=== PATIENT | female | born 1970 | race Caucasian/White ===

== ENCOUNTER 2021-11-30 05:20 | Inpatient (IN) | payer BC ==
[2021-11-30] MEDS ORDERED: Cefepime 2 GM VIAL ONE (05:54)
[2021-11-30 06:14] LABS: #Eosinphils 0.1 10x3/uL (0.0-0.5); #Monocytes 0.8 10x3/uL (0.0-1.1); #Neutrophils 7.3 10x3/uL (1.5-8.4); %Basophils 0.3 % (0.0-2.0); %Eosinophils 0.7 % (0.0-6.0); %Lymphocytes 18.3 % (18.0-47.0); %Monocytes 8.1 % (0.0-10.0); %Neutrophils 71.8 % (40.0-75.0); Hemoglobin 11.2 g/dL (12.0-15.5); Mean Corpuscular HGB CONC 28.9 g/dL (32.0-36.0); Mean Corpuscular Hemoglobin 20.4 pg (27.0-33.0); Mean Corpuscular Volume 70.4 fl (81.6-98.3); Mean Platelet Volume 9.4 fl (7.4-10.4); Platelet Count 525 10x3/uL (150-450); White Blood Cell (WBC) Count 10.2 10x3/uL (3.5-10.5)
[2021-11-30 06:22] LABS: ALT (SGPT) 18 U/L (8-55); AST (SGOT) 25 U/L (5-34); Albumin 3.8 g/dL (3.5-5.0); Alkaline Phosphatase 64 U/L (40-110); Anion Gap 20 mmol/L (10-20); BUN (Urea Nitrogen) 6 mg/dL (7.0-18.7); Bilirubin, Total 0.4 mg/dL (0.2-1.2); Calc. Creatinine Clearance 0 mL/min (70-130); Carbon Dioxide 26 mmol/L (22-29); Chloride 99 mmol/L (98-107); Estimated GFR 120; Globulin 4.7 g/dL (2.4-3.5); Glucose 112 mg/dL (70-105); Protein, Total 8.5 g/dL (6.0-8.3); Sodium 142 mmol/L (136-145)
[2021-11-30 06:25] LABS: Potassium 2.8 mmol/L (3.5-5.1)
[2021-11-30 06:28] LABS: Bilirubin Neg (Negative); Blood, Urine 150 (Negative); Clarity Cloudy (Clear); Glucose, Urine (Dipstick) Normal (Negative); Ketone, Urine 150 mg/dL (Negative); Leukocyte 500 (Negative); Nitrite Positive (Negative); Protein, Urine (Dipstick) 30 mg/dl (Neg-Trace); Specific Gravity, Urine 1.005 (1.002-1.036); Urobilinogen Normal mg/dL (Less than 2)
[2021-11-30 06:50] LABS: Bacteria/HPF 4+ HPF (None Seen); Calcium Oxalate Crystals 1+ HPF (None Seen); Squamous Epithelial 0-3 HPF (0-3); WBC/HPF Greater Than 50 HPF (0-3)
[2021-11-30 07:06] LABS: SARS-CoV-2 NAA Rapid Test DETECTED (NotDetected)
[2021-11-30] MEDS ORDERED: Acetaminophen 650 MG Suppository PR PRN (08:53)
[2021-11-30] MEDS ORDERED: Ondansetron ODT 4 MG TAB PO PRN (08:53)
[2021-11-30] MEDS ORDERED: Acetaminophen 325 MG TAB PO PRN (08:53)
[2021-11-30] MEDS ORDERED: hydrALAZINE 20 MG/ML VIAL SLOW IVP PRN (08:55)
[2021-11-30] MEDS ORDERED: Benzonatate 100 MG CAP PO PRN (08:55)
[2021-11-30] MEDS ORDERED: Electrolyte Replacement Protocol 1 EACH FS SCH (09:00)
[2021-11-30] MEDS ORDERED: Albuterol Sulfate 2.5 mg/3 ml Neb NEB PRN (09:02)
[2021-11-30] MEDS ORDERED: Pharmacy to Dose REMDESIVIR IVPB PRN (09:20)
[2021-11-30] MEDS ORDERED: Enoxaparin Sodium 40 MG/0.4 ML SYRINGE SC SCH (09:45)
[2021-11-30] MEDS: Potassium Chloride 20 MEQ in Premix Bag 1 BAG IVPB SCH ×4 (10:11→18:21)
[2021-11-30] MEDS: Pantoprazole 40 MG VIAL IVP SCH (10:12)
[2021-11-30] MEDS: Zinc Sulfate 220 MG CAP PO SCH (10:12)
[2021-11-30] MEDS: Ascorbic Acid 500 mg Chewable Tablet PO SCH (10:12)
[2021-11-30] MEDS ORDERED: Nystatin Powder 15 GM BOT TOP PRN (10:13)
[2021-11-30] MEDS ORDERED: Dexamethasone 4 mg/ml Vial SLOW IVP SCH (11:00)
[2021-11-30 11:16] VITALS: BMI 38.0
[2021-11-30] MEDS: Ventolin HFA Inhaler 60 PUFF INHALER INH SCH ×4 (12:29→22:58)
[2021-11-30] MEDS: Ondansetron PF 4 MG/2 ML Vial IVP PRN ×2 (14:24→22:11)
[2021-11-30 15:42] LABS: Anion Gap 21 mmol/L (10-20); BUN (Urea Nitrogen) 6 mg/dL (7.0-18.7); Calc. Creatinine Clearance 287 mL/min (70-130); Calcium 8.7 mg/dL (7.8-10.44); Carbon Dioxide 24 mmol/L (22-29); Chloride 101 mmol/L (98-107); Estimated GFR 121; Glucose 97 mg/dL (70-105); Potassium 3.1 mmol/L (3.5-5.1); Sodium 143 mmol/L (136-145)
[2021-11-30] MEDS: Vancomycin HCl 1.25 GM, Admixture Fee 1 EACH in Sodium Chloride 0.9% 250 ML 250 ML IVPB SCH (16:13)
[2021-11-30] MEDS: Cefepime 1 GM in Sodium Chloride 0.9% 100 ML IVPB SCH (18:20)
[2021-11-30] MEDS ORDERED: Dexamethasone 20 MG/5 ML VIAL SLOW IVP SCH (21:00)
[2021-11-30] MEDS ORDERED: Vancomycin 1 GM in Premix Bag 1 BAG IVPB SCH (21:00)
[2021-11-30] MEDS: Chlorhexidine Gluconate 15 ML UDCUP SSP SCH (21:27)
[2021-11-30] MEDS: Cholecalciferol 1,000 UNITS (25 MCG) TAB PO SCH (21:27)
[2021-11-30] MEDS: Dexamethasone 20 MG/5 ML VIAL SLOW IVP SCH (21:28)
[2021-12-01] MEDS: Vancomycin HCl 1.25 GM, Admixture Fee 1 EACH in Sodium Chloride 0.9% 250 ML 250 ML IVPB SCH (00:28)
[2021-12-01] MEDS ORDERED: HYDROcodone/Acetaminophen 10/325 mg Tablet PO SCH (00:30)
[2021-12-01] MEDS ORDERED: Cyclobenzaprine 10 MG TAB PO SCH (00:30)
[2021-12-01] MEDS: Ventolin HFA Inhaler 60 PUFF INHALER INH SCH ×5 (03:37→19:41)
[2021-12-01 04:46] LABS: Hemoglobin 9.7 g/dL (12.0-15.5); Mean Corpuscular Hemoglobin 20.5 pg (27.0-33.0); Mean Corpuscular Volume 70.6 fl (81.6-98.3); Mean Platelet Volume 9.2 fl (7.4-10.4); Platelet Count 478 10x3/uL (150-450); RBC Distribution Width 20.5 % (11.5-14.5); Red Blood Cell (RBC) Count 4.73 10x6/uL (3.90-5.03); White Blood Cell (WBC) Count 5.2 10x3/uL (3.5-10.5)
[2021-12-01 04:53] LABS: ALT (SGPT) 14 U/L (8-55); AST (SGOT) 16 U/L (5-34); Albumin 3.5 g/dL (3.5-5.0); Alkaline Phosphatase 60 U/L (40-110); Anion Gap 19 mmol/L (10-20); BUN (Urea Nitrogen) 4 mg/dL (7.0-18.7); Bilirubin, Total 0.4 mg/dL (0.2-1.2); Calc. Creatinine Clearance 287 mL/min (70-130); Calcium 8.5 mg/dL (7.8-10.44); Carbon Dioxide 21 mmol/L (22-29); Chloride 106 mmol/L (98-107); Estimated GFR 121; Globulin 4.3 g/dL (2.4-3.5); Glucose 122 mg/dL (70-105); Potassium 3.4 mmol/L (3.5-5.1); Protein, Total 7.8 g/dL (6.0-8.3); Sodium 143 mmol/L (136-145)
[2021-12-01] MEDS: Cefepime 1 GM in Sodium Chloride 0.9% 100 ML IVPB SCH ×2 (05:11→17:27)
[2021-12-01] MEDS ORDERED: Magnesium 2 GM/50 ML(in water) 2 GM in Premix Bag 1 BAG IVPB SCH (05:30)
[2021-12-01 06:30] LABS: MDiff Complete? YES
[2021-12-01 06:34] LABS: Lymphocytes 20 % (21-51); Monocytes 5 % (0-10); Neutrophil 73 % (42-75); Reactive Lymphocytes 2 % (0-10)
[2021-12-01 06:37] LABS: Anisocytosis SLIGHT = 6-15 cells (100X) (0-5/hpf); Schistocytes SLIGHT = 2-5 cells (100X) (0-1/hpf)
[2021-12-01 06:38] LABS: Hypochromia SLIGHT = 6-15 cells (100X) (0-5/hpf); Platelet Morphology Comment Appears Increased
[2021-12-01] MEDS: PHOS-NAK 1 PKT PACK PO SCH ×2 (06:53→08:36)
[2021-12-01 07:02] LABS: Vancomycin, Trough 20.8 ug/mL
[2021-12-01] MEDS: Pantoprazole 40 MG VIAL IVP SCH (08:35)
[2021-12-01] MEDS: Ascorbic Acid 500 mg Chewable Tablet PO SCH (08:36)
[2021-12-01] MEDS: Enoxaparin Sodium 40 MG/0.4 ML SYRINGE SC SCH (08:36)
[2021-12-01] MEDS: Cyclobenzaprine 10 MG TAB PO SCH ×3 (08:38→21:29)
[2021-12-01] MEDS: Zinc Sulfate 220 MG CAP PO SCH (08:38)
[2021-12-01] MEDS: Dexamethasone 20 MG/5 ML VIAL SLOW IVP SCH ×2 (08:39→21:29)
[2021-12-01] MEDS: Chlorhexidine Gluconate 15 ML UDCUP SSP SCH ×2 (08:43→21:29)
[2021-12-01] MEDS: HYDROcodone/Acetaminophen 10/325 mg Tablet PO PRN (09:04)
[2021-12-01] MEDS: Vancomycin HCl 1 GM in Sodium Chloride 0.9% 250 ML 250 ML IVPB SCH (11:13)
[2021-12-01] MEDS ORDERED: Zolpidem Tartrate 5 MG TAB PO PRN (16:54)
[2021-12-01] MEDS: Nystatin Powder 15 GM BOT TOP SCH (17:28)
[2021-12-01] MEDS: Cholecalciferol 1,000 UNITS (25 MCG) TAB PO SCH (21:29)
[2021-12-02] MEDS: Ventolin HFA Inhaler 60 PUFF INHALER INH SCH ×7 (00:12→21:02)
[2021-12-02] MEDS: Vancomycin HCl 1 GM in Sodium Chloride 0.9% 250 ML 250 ML IVPB SCH (00:12)
[2021-12-02] MEDS: HYDROcodone/Acetaminophen 10/325 mg Tablet PO PRN ×3 (00:44→20:37)
[2021-12-02 05:06] LABS: #Monocytes 0.5 10x3/uL (0.0-1.1); #Neutrophils 4.7 10x3/uL (1.5-8.4); %Basophils 0.3 % (0.0-2.0); %Lymphocytes 22.2 % (18.0-47.0); %Monocytes 6.7 % (0.0-10.0); %Neutrophils 66.6 % (40.0-75.0); Hemoglobin 8.9 g/dL (12.0-15.5); Mean Corpuscular HGB CONC 28.5 g/dL (32.0-36.0); Mean Corpuscular Volume 70.1 fl (81.6-98.3); Mean Platelet Volume 9.9 fl (7.4-10.4); Platelet Count 522 10x3/uL (150-450); RBC Distribution Width 21.2 % (11.5-14.5); Red Blood Cell (RBC) Count 4.45 10x6/uL (3.90-5.03)
[2021-12-02] MEDS: Cefepime 1 GM in Sodium Chloride 0.9% 100 ML IVPB SCH (05:19)
[2021-12-02 05:30] LABS: ALT (SGPT) 12 U/L (8-55); AST (SGOT) 12 U/L (5-34); Albumin 3.3 g/dL (3.5-5.0); Alkaline Phosphatase 54 U/L (40-110); Anion Gap 14 mmol/L (10-20); BUN (Urea Nitrogen) 6 mg/dL (7.0-18.7); Bilirubin, Total 0.3 mg/dL (0.2-1.2); Calc. Creatinine Clearance 287 mL/min (70-130); Calcium 8.2 mg/dL (7.8-10.44); Carbon Dioxide 26 mmol/L (22-29); Chloride 105 mmol/L (98-107); Estimated GFR 121; Globulin 3.9 g/dL (2.4-3.5); Glucose 125 mg/dL (70-105); Potassium 3.2 mmol/L (3.5-5.1); Protein, Total 7.2 g/dL (6.0-8.3); Sodium 142 mmol/L (136-145)
[2021-12-02] MEDS ORDERED: Potassium Chloride 20 MEQ TAB PO SCH (06:00)
[2021-12-02 06:25] LABS: Hypochromia SLIGHT = 6-15 cells (100X) (0-5/hpf)
[2021-12-02 06:26] LABS: Microcytosis SLIGHT = 6-15 cells (100X) (0-5/hpf)
[2021-12-02] MEDS ORDERED: Fluconazole 100 MG TAB PO SCH (09:00)
[2021-12-02] MEDS: Cyclobenzaprine 10 MG TAB PO SCH ×3 (09:53→20:35)
[2021-12-02] MEDS: Dexamethasone 20 MG/5 ML VIAL SLOW IVP SCH ×2 (09:53→20:36)
[2021-12-02] MEDS: Ascorbic Acid 500 mg Chewable Tablet PO SCH (09:53)
[2021-12-02] MEDS: Escitalopram Oxalate 20 mg Tablet PO SCH (09:54)
[2021-12-02] MEDS: Furosemide 20 MG TAB PO SCH (09:54)
[2021-12-02] MEDS: Ferrous Sulfate 325 MG TAB PO SCH (09:54)
[2021-12-02] MEDS: Potassium Chloride 20 MEQ TAB PO SCH (09:55)
[2021-12-02] MEDS: Zinc Sulfate 220 MG CAP PO SCH (09:56)
[2021-12-02] MEDS: Pantoprazole 40 MG VIAL IVP SCH (09:56)
[2021-12-02] MEDS: Chlorhexidine Gluconate 15 ML UDCUP SSP SCH ×2 (09:56→20:37)
[2021-12-02] MEDS: Enoxaparin Sodium 40 MG/0.4 ML SYRINGE SC SCH (09:56)
[2021-12-02] MEDS: Nystatin Powder 15 GM BOT TOP SCH ×3 (10:06→21:00)
[2021-12-02 11:47] LABS: Potassium 3.7 mmol/L (3.5-5.1)
[2021-12-02] MEDS: Cholecalciferol 1,000 UNITS (25 MCG) TAB PO SCH (20:35)
[2021-12-02] MEDS ORDERED: Melatonin 3 MG TAB PO PRN (20:58)
[2021-12-03] MEDS: Ventolin HFA Inhaler 60 PUFF INHALER INH SCH ×5 (01:45→17:11)
[2021-12-03] MEDS ORDERED: Nitrofurantoin Monohyd/M-Cryst 100 MG CAP PO SCH (09:00)
[2021-12-03] MEDS: Chlorhexidine Gluconate 15 ML UDCUP SSP SCH (10:32)
[2021-12-03] MEDS: Potassium Chloride 20 MEQ TAB PO SCH (10:32)
[2021-12-03] MEDS: Cyclobenzaprine 10 MG TAB PO SCH ×2 (10:32→16:11)
[2021-12-03] MEDS: Ascorbic Acid 500 mg Chewable Tablet PO SCH (10:33)
[2021-12-03] MEDS: Zinc Sulfate 220 MG CAP PO SCH (10:33)
[2021-12-03] MEDS: Escitalopram Oxalate 20 mg Tablet PO SCH (10:34)
[2021-12-03] MEDS: Furosemide 20 MG TAB PO SCH (10:34)
[2021-12-03] MEDS: HYDROcodone/Acetaminophen 10/325 mg Tablet PO PRN ×2 (10:34→16:10)
[2021-12-03] MEDS: Ferrous Sulfate 325 MG TAB PO SCH (10:34)
[2021-12-03] MEDS: Pantoprazole 40 MG VIAL IVP SCH (10:35)
[2021-12-03] MEDS: Dexamethasone 20 MG/5 ML VIAL SLOW IVP SCH (10:35)
[2021-12-03] MEDS: Nystatin Powder 15 GM BOT TOP SCH ×2 (10:36→16:11)
[2021-12-03] MEDS: Enoxaparin Sodium 40 MG/0.4 ML SYRINGE SC SCH (10:36)
[2021-12-03 10:58] LABS: Phosphorus 1.9 mg/dL (2.3-4.7)
[2021-12-03] MEDS ORDERED: Cefdinir 300 MG CAP PO SCH ×2 (12:00→21:00)
[2021-12-03] MEDS ORDERED: Potassium Phosphate 30 MMOL in Sodium Chloride 0.9% 500 ML IVPB SCH (12:00)
[2021-12-03 22:11] VITALS: BP 155/91; TEMP 97.9
== END 2021-12-03 22:14 | disposition home or self-care (01) | DRG 871 ==
LOC: CSHERS 05:20 → CSHTELE 09:39
PROVIDERS: ADMIT Internal Medicine; ATTEND Internal Medicine
DX: A41.9 Sepsis, unspecified organism (principal); U07.1 COVID-19; J96.01 Acute respiratory failure with hypoxia; T83.511A Infection and inflammatory reaction due to indwelling urethral catheter, initial encounter; N39.0 Urinary tract infection, site not specified; G71.00 Muscular dystrophy, unspecified; F32.A Depression, unspecified; E66.9 Obesity, unspecified; E87.6 Hypokalemia; E83.39 Other disorders of phosphorus metabolism; Y83.8 Other surgical procedures as the cause of abnormal reaction of the patient, or of later complication, without mention of misadventure at the time of the procedure; B96.20 Unspecified Escherichia coli [E. coli] as the cause of diseases classified elsewhere; B96.5 Pseudomonas (aeruginosa) (mallei) (pseudomallei) as the cause of diseases classified elsewhere; I10 Essential (primary) hypertension; D50.9 Iron deficiency anemia, unspecified; Z88.1 Allergy status to other antibiotic agents; Z88.0 Allergy status to penicillin; Z79.899 Other long term (current) drug therapy; Z98.890 Other specified postprocedural states; Z68.38 Body mass index [BMI] 38.0-38.9, adult
CPT/HCPCS: 36415; 36416; 71045; 80053; 80202; 81003; 81015; 82728; 83605; 83735; 83880; 84100; 84484; 85025; 85379; 86140; 87040; 87077; 87086; 87186; 94760; 96365; 96366; 97139; C9113; J0692; J1100; J1650; J2405; J3370; J3475; J3480; J3490; J7030; J7050; U0002

== ENCOUNTER 2022-08-07 11:47 | Inpatient (IN) | payer BC, OTHER ==
[2022-08-07 12:46] LABS: Hemoglobin 11.5 g/dL (12.0-15.5); Mean Corpuscular HGB CONC 29.4 g/dL (32.0-36.0); Mean Corpuscular Volume 74.8 fl (81.6-98.3); Mean Platelet Volume 8.8 fl (7.4-10.4); Platelet Count 854 10x3/uL (150-450); RBC Distribution Width 22.7 % (11.5-14.5); Red Blood Cell (RBC) Count 5.23 10x6/uL (3.90-5.03)
[2022-08-07 12:48] LABS: MDiff Complete? YES; Manual Diff?? YES
[2022-08-07 12:51] LABS: ALT (SGPT) 6 U/L (8-55); AST (SGOT) 13 U/L (5-34); Albumin 2.7 g/dL (3.5-5.0); Alkaline Phosphatase 113 U/L (40-110); Anion Gap 27 mmol/L (10-20); BUN (Urea Nitrogen) 7 mg/dL (7.0-18.7); Bilirubin, Total 0.2 mg/dL (0.2-1.2); Calc. Creatinine Clearance 0 mL/min (70-130); Calcium 8.3 mg/dL (7.8-10.44); Carbon Dioxide 17 mmol/L (22-29); Chloride 99 mmol/L (98-107); Estimated GFR 115; Globulin 5.3 g/dL (2.4-3.5); Glucose 99 mg/dL (70-105); Magnesium 2.2 mg/dL (1.6-2.6); Potassium 3.5 mmol/L (3.5-5.1); Sodium 139 mmol/L (136-145)
[2022-08-07 12:54] LABS: Band 3 % (5-11); Lymphocytes 14 % (21-51); Monocytes 2 % (0-10); Neutrophil 81 % (42-75)
[2022-08-07 12:55] LABS: Platelet Morphology Comment Appears Increased
[2022-08-07 12:57] LABS: Macrocytosis SLIGHT = 6-15 cells (100X) (0-5/hpf); Microcytosis SLIGHT = 6-15 cells (100X) (0-5/hpf)
[2022-08-07] MEDS ORDERED: VANCOMYCIN 2 GRAM/400 ML BAG 2 GM in Premix Bag 1 BAG IVPB SCH (13:15)
[2022-08-07] MEDS ORDERED: Morphine 4 MG/ML VIAL ONE (13:55)
[2022-08-07 13:58] LABS: Bilirubin Neg (Negative); Blood, Urine 25 (Negative); Clarity Clear (Clear); Glucose, Urine (Dipstick) Normal (Negative); Ketone, Urine 150 mg/dL (Negative); Leukocyte 500 (Negative); Nitrite Negative (Negative); Protein, Urine (Dipstick) 30 mg/dl (Neg-Trace); Urobilinogen Normal mg/dL (Less than 2)
[2022-08-07 14:06] LABS: RBC/HPF 0-3 HPF (0-3); WBC/HPF Greater than 50 HPF (0-3)
[2022-08-07 14:07] LABS: Bacteria/HPF 3+ HPF (None Seen); Renal Epithelial 0-3 HPF (None Seen); Transitional Epithelial 0-3 HPF (None Seen)
[2022-08-07 14:28] LABS: SARS-CoV-2 NAA Rapid Test Not Detected (NotDetected)
[2022-08-07] MEDS ORDERED: Promethazine HCl 25 MG in Sodium Chloride 0.9% 50 ML IVPB SCH (14:30)
[2022-08-07] MEDS ORDERED: Zolpidem Tartrate 5 MG TAB PO PRN (14:43)
[2022-08-07] MEDS ORDERED: Promethazine 25 MG TAB PO PRN (14:43)
[2022-08-07] MEDS ORDERED: diphenhydrAMINE 50 MG CAP PO PRN (14:43)
[2022-08-07] MEDS ORDERED: Acetaminophen 325 MG TAB PO PRN (14:52)
[2022-08-07] MEDS ORDERED: Ondansetron PF 4 MG/2 ML Vial IVP PRN (14:52)
[2022-08-07] MEDS ORDERED: Cefepime 2 GM VIAL ONE (16:13)
[2022-08-07] MEDS ORDERED: Cyclobenzaprine 10 MG TAB ONE (17:29)
[2022-08-07] MEDS ORDERED: HYDROcodone/Acetaminophen 10/325 mg Tablet ONE (17:29)
[2022-08-07] MEDS: Cyclobenzaprine 10 MG TAB PO SCH ×2 (19:11→21:03)
[2022-08-07] MEDS: HYDROcodone/Acetaminophen 10/325 mg Tablet PO SCH ×2 (19:11→21:03)
[2022-08-07] MEDS: Nystatin/Triamcinolone Cream 15 GM TUBE TOP SCH (20:55)
[2022-08-07] MEDS: Lactated Ringer's 1,000 ML IV SCH ×2 (21:02→22:55)
[2022-08-07] MEDS: Nystatin Powder 15 GM BOT TOP SCH (21:07)
[2022-08-07] MEDS ORDERED: Amlodipine 5 MG TAB PO SCH (22:30)
[2022-08-08 03:19] LABS: #Basophils 0.1 10x3/uL (0.0-0.2); #Monocytes 2.1 10x3/uL (0.0-1.1); #Neutrophils 14.9 10x3/uL (1.5-8.4); %Basophils 0.3 % (0.0-2.0); %Lymphocytes 18.8 % (18.0-47.0); %Monocytes 9.7 % (0.0-10.0); %Neutrophils 67.5 % (40.0-75.0); Hemoglobin 10.3 g/dL (12.0-15.5); Mean Corpuscular HGB CONC 29.3 g/dL (32.0-36.0); Mean Corpuscular Hemoglobin 22.2 pg (27.0-33.0); Mean Platelet Volume 8.8 fl (7.4-10.4); Platelet Count 550 10x3/uL (150-450); RBC Distribution Width 22.7 % (11.5-14.5); Red Blood Cell (RBC) Count 4.63 10x6/uL (3.90-5.03)
[2022-08-08 03:35] LABS: Anisocytosis SLIGHT = 6-15 cells (100X) (0-5/hpf); Hypochromia SLIGHT = 6-15 cells (100X) (0-5/hpf); Microcytosis SLIGHT = 6-15 cells (100X) (0-5/hpf); Platelet Morphology Comment Appears Increased; Polychromasia SLIGHT = 2-3 cells (100X) (0-2/hpf)
[2022-08-08 03:36] LABS: ALT (SGPT) 6 U/L (8-55); AST (SGOT) 18 U/L (5-34); Albumin 2.1 g/dL (3.5-5.0); Alkaline Phosphatase 87 U/L (40-110); Anion Gap 20 mmol/L (10-20); BUN (Urea Nitrogen) 4 mg/dL (7.0-18.7); Bilirubin, Total 0.2 mg/dL (0.2-1.2); Calc. Creatinine Clearance 219 mL/min (70-130); Calcium 7.8 mg/dL (7.8-10.44); Carbon Dioxide 17 mmol/L (22-29); Chloride 106 mmol/L (98-107); Estimated GFR 117; Globulin 5.1 g/dL (2.4-3.5); Glucose 85 mg/dL (70-105); Potassium 3.2 mmol/L (3.5-5.1); Protein, Total 7.2 g/dL (6.0-8.3); Sodium 140 mmol/L (136-145)
[2022-08-08] MEDS: Cefepime 2 GM in Sodium Chloride 0.9% 100 ML IVPB SCH ×2 (03:36→15:36)
[2022-08-08] MEDS: Lactated Ringer's 1,000 ML IV SCH ×2 (04:46→15:37)
[2022-08-08] MEDS ORDERED: Potassium Chloride 20 MEQ in Premix Bag 1 BAG IVPB SCH (05:15)
[2022-08-08] MEDS: Cyclobenzaprine 10 MG TAB PO SCH ×3 (08:41→21:35)
[2022-08-08] MEDS: Zinc Sulfate 220 MG CAP PO SCH (08:41)
[2022-08-08] MEDS: HYDROcodone/Acetaminophen 10/325 mg Tablet PO SCH ×3 (08:42→21:35)
[2022-08-08] MEDS: Escitalopram Oxalate 20 mg Tablet PO SCH (08:42)
[2022-08-08] MEDS: Ascorbic Acid 500 mg Chewable Tablet PO SCH (08:43)
[2022-08-08] MEDS: Nystatin/Triamcinolone Cream 15 GM TUBE TOP SCH ×2 (08:43→21:39)
[2022-08-08] MEDS: Aspirin 81 mg Enteric Coated Tablet PO SCH (08:43)
[2022-08-08] MEDS: Nystatin Powder 15 GM BOT TOP SCH ×4 (09:09→21:39)
[2022-08-08] MEDS ORDERED: Potassium Chloride 20 MEQ TAB PO SCH (09:15)
[2022-08-08] MEDS ORDERED: Vancomycin HCl 1.5 GM, Admixture Fee 1 EACH in Sodium Chloride 0.9% 250 ML 300 ML IVPB SCH (09:30)
[2022-08-08] MEDS ORDERED: Vancomycin HCl 1.5 GM in Sodium Chloride 0.9% 250 ML 300 ML IVPB SCH (09:30)
[2022-08-08] MEDS ORDERED: hydrALAZINE 20 MG/ML VIAL SLOW IVP PRN (18:34)
[2022-08-08] MEDS: Vancomycin HCl 1 GM in Sodium Chloride 0.9% 250 ML 250 ML IVPB SCH (21:36)
[2022-08-09 04:02] LABS: #Basophils 0.1 10x3/uL (0.0-0.2); #Eosinphils 0.1 10x3/uL (0.0-0.5); #Monocytes 1.2 10x3/uL (0.0-1.1); #Neutrophils 9.9 10x3/uL (1.5-8.4); %Basophils 0.3 % (0.0-2.0); %Eosinophils 0.4 % (0.0-6.0); %Lymphocytes 23.3 % (18.0-47.0); %Monocytes 7.9 % (0.0-10.0); %Neutrophils 64.7 % (40.0-75.0); Hemoglobin 9.5 g/dL (12.0-15.5); Mean Corpuscular HGB CONC 29.3 g/dL (32.0-36.0); Mean Corpuscular Hemoglobin 22.4 pg (27.0-33.0); Mean Corpuscular Volume 76.2 fl (81.6-98.3); Mean Platelet Volume 8.3 fl (7.4-10.4); Platelet Count 545 10x3/uL (150-450); RBC Distribution Width 22.8 % (11.5-14.5); Red Blood Cell (RBC) Count 4.25 10x6/uL (3.90-5.03); White Blood Cell (WBC) Count 15.3 10x3/uL (3.5-10.5)
[2022-08-09] MEDS: Cefepime 2 GM in Sodium Chloride 0.9% 100 ML IVPB SCH ×2 (04:13→15:00)
[2022-08-09 04:17] LABS: ALT (SGPT) 7 U/L (8-55); AST (SGOT) 14 U/L (5-34); Albumin 2.1 g/dL (3.5-5.0); Alkaline Phosphatase 79 U/L (40-110); Anion Gap 17 mmol/L (10-20); BUN (Urea Nitrogen) Less than 4 mg/dL (7.0-18.7); Bilirubin, Total 0.2 mg/dL (0.2-1.2); Calc. Creatinine Clearance 239 mL/min (70-130); Calcium 7.8 mg/dL (7.8-10.44); Carbon Dioxide 25 mmol/L (22-29); Chloride 102 mmol/L (98-107); Estimated GFR 119; Globulin 4.2 g/dL (2.4-3.5); Glucose 70 mg/dL (70-105); Protein, Total 6.3 g/dL (6.0-8.3); Sodium 141 mmol/L (136-145)
[2022-08-09 04:24] LABS: Potassium 2.6 mmol/L (3.5-5.1)
[2022-08-09 04:39] LABS: Anisocytosis SLIGHT = 6-15 cells (100X) (0-5/hpf)
[2022-08-09 04:40] LABS: Hypochromia MODERATE=16-30 cells (100X) (0-5/hpf); Microcytosis SLIGHT = 6-15 cells (100X) (0-5/hpf); Platelet Morphology Comment Appears Increased; Polychromasia SLIGHT = 2-3 cells (100X) (0-2/hpf)
[2022-08-09] MEDS ORDERED: Potassium Chloride 20 MEQ in Premix Bag 1 BAG IVPB SCH ×2 (04:45→08:00)
[2022-08-09] MEDS: Lactated Ringer's 1,000 ML IV SCH ×2 (05:00→22:15)
[2022-08-09] MEDS: Potassium Chloride 20 MEQ TAB PO SCH ×2 (06:05→09:53)
[2022-08-09 06:20] VITALS: BMI 36.4
[2022-08-09] MEDS: HYDROcodone/Acetaminophen 10/325 mg Tablet PO SCH ×5 (09:51→20:25)
[2022-08-09] MEDS: Escitalopram Oxalate 20 mg Tablet PO SCH (09:53)
[2022-08-09] MEDS: Ascorbic Acid 500 mg Chewable Tablet PO SCH (09:54)
[2022-08-09] MEDS: Aspirin 81 mg Enteric Coated Tablet PO SCH (09:55)
[2022-08-09] MEDS: Zinc Sulfate 220 MG CAP PO SCH (09:55)
[2022-08-09] MEDS: Cyclobenzaprine 10 MG TAB PO SCH ×5 (09:55→20:26)
[2022-08-09] MEDS: Nystatin Powder 15 GM BOT TOP SCH ×3 (09:58→20:28)
[2022-08-09] MEDS: Nystatin/Triamcinolone Cream 15 GM TUBE TOP SCH ×2 (10:12→20:27)
[2022-08-09] MEDS: Vancomycin HCl 1 GM in Sodium Chloride 0.9% 250 ML 250 ML IVPB SCH ×4 (11:35→22:48)
[2022-08-09 13:15] LABS: Potassium 3.1 mmol/L (3.5-5.1)
[2022-08-09] MEDS: Morphine 4 MG/ML VIAL SLOW IVP PRN (14:24)
[2022-08-09] MEDS: Potassium Chloride 20 MEQ in Premix Bag 1 BAG IVPB SCH ×2 (16:13→18:12)
[2022-08-09 22:22] LABS: Vancomycin, Trough 18.1 ug/mL
[2022-08-10] MEDS: Cefepime 2 GM in Sodium Chloride 0.9% 100 ML IVPB SCH ×2 (04:30→16:08)
[2022-08-10] MEDS: Lactated Ringer's 1,000 ML IV SCH (04:42)
[2022-08-10 04:56] LABS: #Basophils 0.1 10x3/uL (0.0-0.2); #Monocytes 2.2 10x3/uL (0.0-1.1); %Basophils 0.6 % (0.0-2.0); %Eosinophils 0.2 % (0.0-6.0); %Lymphocytes 20.5 % (18.0-47.0); %Monocytes 12.4 % (0.0-10.0); %Neutrophils 62.1 % (40.0-75.0); Hemoglobin 9.7 g/dL (12.0-15.5); Mean Corpuscular Hemoglobin 22.4 pg (27.0-33.0); Platelet Count 598 10x3/uL (150-450); RBC Distribution Width 23.2 % (11.5-14.5); Red Blood Cell (RBC) Count 4.34 10x6/uL (3.90-5.03); White Blood Cell (WBC) Count 17.7 10x3/uL (3.5-10.5)
[2022-08-10] MEDS ORDERED: Metoprolol Tartrate 25 MG TAB PO SCH (05:00)
[2022-08-10 05:05] LABS: ALT (SGPT) 8 U/L (8-55); AST (SGOT) 13 U/L (5-34); Albumin 2.2 g/dL (3.5-5.0); Alkaline Phosphatase 88 U/L (40-110); Anion Gap 19 mmol/L (10-20); BUN (Urea Nitrogen) Less than 4 mg/dL (7.0-18.7); Bilirubin, Total 0.2 mg/dL (0.2-1.2); Calc. Creatinine Clearance 266 mL/min (70-130); Calcium 7.9 mg/dL (7.8-10.44); Carbon Dioxide 26 mmol/L (22-29); Chloride 100 mmol/L (98-107); Estimated GFR 120; Globulin 4.3 g/dL (2.4-3.5); Glucose 59 mg/dL (70-105); Potassium 3.4 mmol/L (3.5-5.1); Protein, Total 6.5 g/dL (6.0-8.3); Sodium 142 mmol/L (136-145)
[2022-08-10] MEDS ORDERED: Potassium Bicarbonate/Cit Ac 20 MEQ TAB PO SCH (09:00)
[2022-08-10] MEDS: Ascorbic Acid 500 mg Chewable Tablet PO SCH (09:28)
[2022-08-10] MEDS: Zinc Sulfate 220 MG CAP PO SCH (09:29)
[2022-08-10] MEDS: HYDROcodone/Acetaminophen 10/325 mg Tablet PO SCH ×2 (09:33→16:07)
[2022-08-10] MEDS: Aspirin 81 mg Enteric Coated Tablet PO SCH (09:34)
[2022-08-10] MEDS: Escitalopram Oxalate 20 mg Tablet PO SCH (09:34)
[2022-08-10] MEDS: Cyclobenzaprine 10 MG TAB PO SCH ×2 (09:35→16:07)
[2022-08-10] MEDS: Nystatin Powder 15 GM BOT TOP SCH ×2 (09:36→15:37)
[2022-08-10] MEDS: Nystatin/Triamcinolone Cream 15 GM TUBE TOP SCH (11:39)
[2022-08-10] MEDS: Vancomycin HCl 1 GM in Sodium Chloride 0.9% 250 ML 250 ML IVPB SCH (11:40)
[2022-08-10] MEDS ORDERED: Polyethylene Glycol 3350 17 GM Packet PO PRN (11:54)
[2022-08-10] MEDS ORDERED: Docusate 100 MG CAP PO PRN (11:54)
[2022-08-10] MEDS ORDERED: Polyethylene Glycol 3350 17 GM Packet PO SCH (12:00)
[2022-08-10] MEDS ORDERED: Docusate 100 MG CAP PO SCH (12:00)
[2022-08-10] MEDS: Morphine 4 MG/ML VIAL SLOW IVP PRN (13:17)
[2022-08-10] MEDS ORDERED: Cefepime 2 GM VIAL ONE (16:00)
[2022-08-10] MEDS ORDERED: Sodium Chloride 0.9% 100 ML ONE (16:00)
[2022-08-10 16:43] VITALS: BP 138/84; TEMP 97.4
== END 2022-08-10 19:14 | disposition short-term general hospital (02) | DRG 698 ==
LOC: CSHERS 11:47 → CSHICU 15:00 → CSHTELE 08-08 14:33
PROVIDERS: ADMIT Internal Medicine; ATTEND Internal Medicine
PROC: 0T2BX0Z Change Drainage Device in Bladder, External Approach (ICD-10-PCS; principal; 2022-08-07)
DX: T83.511A Infection and inflammatory reaction due to indwelling urethral catheter, initial encounter (principal); A41.51 Sepsis due to Escherichia coli [E. coli]; N12 Tubulo-interstitial nephritis, not specified as acute or chronic; I10 Essential (primary) hypertension; G71.00 Muscular dystrophy, unspecified; F32.A Depression, unspecified; Z20.822 Contact with and (suspected) exposure to COVID-19; E66.9 Obesity, unspecified; D64.9 Anemia, unspecified; Y83.8 Other surgical procedures as the cause of abnormal reaction of the patient, or of later complication, without mention of misadventure at the time of the procedure; E87.6 Hypokalemia; Z68.36 Body mass index [BMI] 36.0-36.9, adult; Z98.890 Other specified postprocedural states; Z88.1 Allergy status to other antibiotic agents; Z88.0 Allergy status to penicillin; Z79.899 Other long term (current) drug therapy; Z79.82 Long term (current) use of aspirin
CPT/HCPCS: 36415; 71045; 80053; 80202; 81003; 81015; 83605; 83735; 84484; 85025; 87040; 87086; 94760; 96365; 96366; 96367; 96375; 97139; J0692; J1650; J2270; J2405; J2550; J3370; J3480; J3490; J7050; J7120; U0002

== ENCOUNTER 2022-08-18 10:51 | Inpatient (IN) | payer OTHER ==
[2022-08-18] MEDS ORDERED: Ondansetron PF 4 MG/2 ML Vial ONE ×2 (11:26→17:07)
[2022-08-18] MEDS ORDERED: Cefepime 2 GM VIAL ONE (11:27)
[2022-08-18] MEDS ORDERED: Vancomycin 1 GM VIAL ONE (11:27)
[2022-08-18 11:31] LABS: #Monocytes 0.9 10x3/uL (0.0-1.1); #Neutrophils 9.8 10x3/uL (1.5-8.4); %Basophils 0.1 % (0.0-2.0); %Eosinophils 0.3 % (0.0-6.0); %Lymphocytes 18.7 % (18.0-47.0); %Monocytes 6.9 % (0.0-10.0); %Neutrophils 73.2 % (40.0-75.0); Hemoglobin 10.2 g/dL (12.0-15.5); Mean Corpuscular HGB CONC 29.3 g/dL (32.0-36.0); Mean Corpuscular Hemoglobin 23.3 pg (27.0-33.0); Mean Corpuscular Volume 79.5 fl (81.6-98.3); Mean Platelet Volume 9.2 fl (7.4-10.4); Platelet Count 552 10x3/uL (150-450); RBC Distribution Width 26.8 % (11.5-14.5); Red Blood Cell (RBC) Count 4.38 10x6/uL (3.90-5.03); White Blood Cell (WBC) Count 13.5 10x3/uL (3.5-10.5)
[2022-08-18 11:48] LABS: Anisocytosis MODERATE=16-30 cells (100X) (0-5/hpf); Hypochromia SLIGHT = 6-15 cells (100X) (0-5/hpf); Macrocytosis SLIGHT = 6-15 cells (100X) (0-5/hpf); Microcytosis SLIGHT = 6-15 cells (100X) (0-5/hpf)
[2022-08-18 11:49] LABS: Ovalocytes SLIGHT = 2-5 cells (100X) (0-1/hpf)
[2022-08-18 11:51] LABS: ALT (SGPT) 14 U/L (8-55); AST (SGOT) 24 U/L (5-34); Albumin 2.2 g/dL (3.5-5.0); Alkaline Phosphatase 114 U/L (40-110); Anion Gap 17 mmol/L (10-20); BUN (Urea Nitrogen) 17 mg/dL (7.0-18.7); Bilirubin, Total 0.3 mg/dL (0.2-1.2); Calc. Creatinine Clearance 0 mL/min (70-130); Calcium 8.1 mg/dL (7.8-10.44); Carbon Dioxide 27 mmol/L (22-29); Chloride 100 mmol/L (98-107); Estimated GFR 121; Globulin 4.3 g/dL (2.4-3.5); Glucose 100 mg/dL (70-105); Polychromasia SLIGHT = 2-3 cells (100X) (0-2/hpf); Potassium 3.8 mmol/L (3.5-5.1); Protein, Total 6.5 g/dL (6.0-8.3); Sodium 140 mmol/L (136-145)
[2022-08-18 11:52] LABS: Platelet Morphology Comment Appears Increased
[2022-08-18 12:18] LABS: Bilirubin Neg (Negative); Blood, Urine 25 (Negative); Clarity Cloudy (Clear); Glucose, Urine (Dipstick) Normal (Negative); Ketone, Urine 150 mg/dL (Negative); Leukocyte 500 (Negative); Nitrite Negative (Negative); Protein, Urine (Dipstick) 30 mg/dl (Neg-Trace); Specific Gravity, Urine 1.025 (1.005-1.030); Urobilinogen Normal mg/dL (Less than 2)
[2022-08-18 12:42] LABS: RBC/HPF 0-3 HPF (0-3); Squamous Epithelial 0-3 HPF (0-3); WBC/HPF Greater than 50 HPF (0-3)
[2022-08-18 12:43] LABS: Bacteria/HPF Rare-Few HPF (None Seen); Mucous/LPF 2+ LPF (<2+); Yeast-Budding 2+ HPF (None Seen); Yeast-Hyphae 2+ HPF (None Seen)
[2022-08-18 12:44] LABS: Calcium Oxalate Crystals Rare HPF (None Seen)
[2022-08-18] MEDS ORDERED: Promethazine HCl 12.5 MG in Sodium Chloride 0.9% 50 ML IVPB SCH (13:00)
[2022-08-18] MEDS ORDERED: Morphine 4 MG/ML VIAL ONE (13:38)
[2022-08-18 14:42] LABS: SARS-CoV-2 NAA Rapid Test Not Detected (NotDetected)
[2022-08-18] MEDS ORDERED: Acetaminophen 325 MG TAB PO PRN (14:54)
[2022-08-18] MEDS ORDERED: Ondansetron ODT 4 MG TAB PO PRN (14:54)
[2022-08-18] MEDS ORDERED: Promethazine 25 MG TAB PO PRN (15:13)
[2022-08-18] MEDS ORDERED: Zolpidem Tartrate 5 MG TAB PO PRN (15:13)
[2022-08-18] MEDS ORDERED: diphenhydrAMINE 25 MG CAP PO PRN (15:21)
[2022-08-18] MEDS ORDERED: Lidocaine 2% 6 ML SYR TOP PRN (18:30)
[2022-08-18] MEDS ORDERED: Baclofen 10 MG TAB PO PRN (18:44)
[2022-08-18] MEDS ORDERED: Meropenem 1 GM in Sodium Chloride 0.9% 100 ML IVPB SCH (20:00)
[2022-08-18] MEDS ORDERED: Doxycycline 100 MG in Sodium Chloride 0.9% 100 ML IVPB SCH (21:00)
[2022-08-18] MEDS ORDERED: Meropenem 500 MG in Sodium Chloride 0.9% 100 ML IVPB SCH (22:00)
[2022-08-18] MEDS: Ondansetron PF 4 MG/2 ML Vial IVP PRN (22:20)
[2022-08-18] MEDS: Morphine 4 MG/ML VIAL SLOW IVP PRN (22:20)
[2022-08-18] MEDS: HYDROcodone/Acetaminophen 10/325 mg Tablet PO SCH (22:21)
[2022-08-18] MEDS: Metoprolol Tartrate 25 MG TAB PO SCH (22:21)
[2022-08-18] MEDS: Pregabalin 75 MG CAP PO SCH (22:22)
[2022-08-18] MEDS: Sodium Chloride 0.9% 1,000 ML IV SCH (22:33)
[2022-08-18] MEDS: Nystatin Powder 15 GM BOT TOP SCH (22:35)
[2022-08-18] MEDS: Oxymetazoline HCl 0.05% ( 15 ML ) NASAL SCH (22:37)
[2022-08-19] MEDS: Vancomycin HCl 1 GM in Sodium Chloride 0.9% 250 ML 250 ML IVPB SCH ×3 (02:10→21:34)
[2022-08-19 04:11] LABS: #Basophils 0.1 10x3/uL (0.0-0.2); %Basophils 0.3 % (0.0-2.0); %Eosinophils 0.3 % (0.0-6.0); %Lymphocytes 19.8 % (18.0-47.0); %Monocytes 12.9 % (0.0-10.0); %Neutrophils 66.2 % (40.0-75.0); Hemoglobin 9.2 g/dL (12.0-15.5); Mean Corpuscular HGB CONC 29.4 g/dL (32.0-36.0); Mean Corpuscular Hemoglobin 23.4 pg (27.0-33.0); Mean Corpuscular Volume 79.4 fl (81.6-98.3); Platelet Count 467 10x3/uL (150-450); RBC Distribution Width 26.7 % (11.5-14.5); Red Blood Cell (RBC) Count 3.94 10x6/uL (3.90-5.03); White Blood Cell (WBC) Count 15.2 10x3/uL (3.5-10.5)
[2022-08-19 04:20] LABS: Anion Gap 14 mmol/L (10-20); BUN (Urea Nitrogen) 13 mg/dL (7.0-18.7); Calc. Creatinine Clearance 253 mL/min (70-130); Calcium 7.4 mg/dL (7.8-10.44); Carbon Dioxide 24 mmol/L (22-29); Chloride 108 mmol/L (98-107); Estimated GFR 121; Glucose 82 mg/dL (70-105); Potassium 3.2 mmol/L (3.5-5.1); Sodium 143 mmol/L (136-145)
[2022-08-19] MEDS: Meropenem 1 GM in Sodium Chloride 0.9% 100 ML IVPB SCH ×3 (06:04→21:28)
[2022-08-19] MEDS ORDERED: Electrolyte Replacement Protocol 1 EACH FS SCH (07:45)
[2022-08-19] MEDS: Aspirin 81 mg Enteric Coated Tablet PO SCH (09:06)
[2022-08-19] MEDS: Escitalopram Oxalate 20 mg Tablet PO SCH (09:06)
[2022-08-19] MEDS: HYDROcodone/Acetaminophen 10/325 mg Tablet PO SCH ×3 (09:06→21:27)
[2022-08-19] MEDS: Metoprolol Tartrate 25 MG TAB PO SCH ×2 (09:08→21:27)
[2022-08-19] MEDS: Pregabalin 75 MG CAP PO SCH ×2 (09:09→21:31)
[2022-08-19] MEDS: Sodium Chloride 0.9% 1,000 ML IV SCH ×2 (09:13→22:40)
[2022-08-19] MEDS: Nystatin Powder 15 GM BOT TOP SCH ×3 (09:33→21:34)
[2022-08-19] MEDS: Oxymetazoline HCl 0.05% ( 15 ML ) NASAL SCH ×2 (09:35→21:32)
[2022-08-19 11:05] VITALS: BMI 33.9
[2022-08-19] MEDS: Potassium Chloride 20 MEQ TAB PO SCH ×2 (12:47→12:52)
[2022-08-19] MEDS: Morphine 4 MG/ML VIAL SLOW IVP PRN (13:45)
[2022-08-19] MEDS: Potassium Chloride 20 MEQ in Premix Bag 1 BAG IVPB SCH ×2 (15:51→19:00)
[2022-08-19 18:46] LABS: Potassium 3.5 mmol/L (3.5-5.1)
[2022-08-20] MEDS: Meropenem 1 GM in Sodium Chloride 0.9% 100 ML IVPB SCH ×3 (04:06→21:39)
[2022-08-20 05:16] LABS: #Eosinphils 0.2 10x3/uL (0.0-0.5); #Monocytes 1.5 10x3/uL (0.0-1.1); #Neutrophils 5.2 10x3/uL (1.5-8.4); %Basophils 0.4 % (0.0-2.0); %Eosinophils 2.3 % (0.0-6.0); %Lymphocytes 32.6 % (18.0-47.0); %Neutrophils 50.2 % (40.0-75.0); Hemoglobin 8.4 g/dL (12.0-15.5); Mean Corpuscular HGB CONC 28.7 g/dL (32.0-36.0); Mean Corpuscular Hemoglobin 23.4 pg (27.0-33.0); Mean Corpuscular Volume 81.6 fl (81.6-98.3); Mean Platelet Volume 9.2 fl (7.4-10.4); Platelet Count 409 10x3/uL (150-450); RBC Distribution Width 27.4 % (11.5-14.5); Red Blood Cell (RBC) Count 3.59 10x6/uL (3.90-5.03); White Blood Cell (WBC) Count 10.4 10x3/uL (3.5-10.5)
[2022-08-20 05:31] LABS: Anion Gap 10 mmol/L (10-20); BUN (Urea Nitrogen) 8 mg/dL (7.0-18.7); Calc. Creatinine Clearance 253 mL/min (70-130); Calcium 7.5 mg/dL (7.8-10.44); Carbon Dioxide 27 mmol/L (22-29); Chloride 108 mmol/L (98-107); Estimated GFR 121; Glucose 74 mg/dL (70-105); Magnesium 1.7 mg/dL (1.6-2.6); Potassium 4.2 mmol/L (3.5-5.1); Sodium 141 mmol/L (136-145)
[2022-08-20] MEDS ORDERED: Albumin 25% 25 GM/100 ML BOT IVPB SCH (07:30)
[2022-08-20] MEDS ORDERED: Sodium Chloride 0.9% 250 ML 250 ML ONE (07:44)
[2022-08-20] MEDS: Albumin 25% 25 GM/100 ML BOT IVPB SCH ×3 (08:38→23:59)
[2022-08-20] MEDS: Aspirin 81 mg Enteric Coated Tablet PO SCH (08:41)
[2022-08-20] MEDS: Escitalopram Oxalate 20 mg Tablet PO SCH (08:41)
[2022-08-20] MEDS: HYDROcodone/Acetaminophen 10/325 mg Tablet PO SCH ×3 (08:41→21:44)
[2022-08-20] MEDS: Pregabalin 75 MG CAP PO SCH ×2 (08:44→21:45)
[2022-08-20] MEDS: Vancomycin HCl 1 GM in Sodium Chloride 0.9% 250 ML 250 ML IVPB SCH ×2 (08:44→21:41)
[2022-08-20] MEDS: Metoprolol Tartrate 25 MG TAB PO SCH ×2 (08:44→21:46)
[2022-08-20] MEDS: Nystatin Powder 15 GM BOT TOP SCH ×2 (09:00→15:07)
[2022-08-20] MEDS: Oxymetazoline HCl 0.05% ( 15 ML ) NASAL SCH ×2 (09:08→23:59)
[2022-08-21] MEDS: Albumin 25% 25 GM/100 ML BOT IVPB SCH (02:30)
[2022-08-21 04:31] LABS: #Basophils 0.1 10x3/uL (0.0-0.2); #Eosinphils 0.2 10x3/uL (0.0-0.5); #Monocytes 1.4 10x3/uL (0.0-1.1); #Neutrophils 4.8 10x3/uL (1.5-8.4); %Basophils 0.5 % (0.0-2.0); %Eosinophils 2.3 % (0.0-6.0); %Lymphocytes 37.7 % (18.0-47.0); %Monocytes 13.4 % (0.0-10.0); %Neutrophils 45.7 % (40.0-75.0); Hemoglobin 8.6 g/dL (12.0-15.5); Mean Corpuscular Hemoglobin 23.8 pg (27.0-33.0); Mean Platelet Volume 8.8 fl (7.4-10.4); Platelet Count 355 10x3/uL (150-450); RBC Distribution Width 27.4 % (11.5-14.5); Red Blood Cell (RBC) Count 3.62 10x6/uL (3.90-5.03); White Blood Cell (WBC) Count 10.4 10x3/uL (3.5-10.5)
[2022-08-21 04:43] LABS: Anion Gap 11 mmol/L (10-20); BUN (Urea Nitrogen) 6 mg/dL (7.0-18.7); Calc. Creatinine Clearance 253 mL/min (70-130); Calcium 7.3 mg/dL (7.8-10.44); Carbon Dioxide 25 mmol/L (22-29); Chloride 107 mmol/L (98-107); Estimated GFR 121; Glucose 83 mg/dL (70-105); Magnesium 1.8 mg/dL (1.6-2.6); Potassium 4.1 mmol/L (3.5-5.1); Sodium 139 mmol/L (136-145)
[2022-08-21] MEDS: Meropenem 1 GM in Sodium Chloride 0.9% 100 ML IVPB SCH ×2 (04:54→12:03)
[2022-08-21] MEDS: Nystatin Powder 15 GM BOT TOP SCH ×3 (04:54→14:04)
[2022-08-21 09:02] LABS: Vancomycin, Trough 13.6 ug/mL
[2022-08-21] MEDS: Escitalopram Oxalate 20 mg Tablet PO SCH (09:49)
[2022-08-21] MEDS: Aspirin 81 mg Enteric Coated Tablet PO SCH (09:49)
[2022-08-21] MEDS: HYDROcodone/Acetaminophen 10/325 mg Tablet PO SCH ×3 (09:50→21:22)
[2022-08-21] MEDS: Metoprolol Tartrate 25 MG TAB PO SCH ×2 (09:51→21:23)
[2022-08-21] MEDS: Pregabalin 75 MG CAP PO SCH ×2 (09:51→21:23)
[2022-08-21] MEDS: Vancomycin HCl 1 GM in Sodium Chloride 0.9% 250 ML 250 ML IVPB SCH (09:52)
[2022-08-21] MEDS: Oxymetazoline HCl 0.05% ( 15 ML ) NASAL SCH ×2 (10:05→21:27)
[2022-08-21] MEDS: Fluconazole 100 MG TAB PO SCH (21:22)
[2022-08-22] MEDS: Nystatin Powder 15 GM BOT TOP SCH ×4 (04:40→21:23)
[2022-08-22 05:49] LABS: #Basophils 0.1 10x3/uL (0.0-0.2); #Eosinphils 0.3 10x3/uL (0.0-0.5); #Monocytes 1.5 10x3/uL (0.0-1.1); #Neutrophils 4.5 10x3/uL (1.5-8.4); %Basophils 0.6 % (0.0-2.0); %Eosinophils 2.9 % (0.0-6.0); %Lymphocytes 39.6 % (18.0-47.0); %Monocytes 14.4 % (0.0-10.0); %Neutrophils 42.1 % (40.0-75.0); Hemoglobin 8.7 g/dL (12.0-15.5); Mean Corpuscular HGB CONC 28.2 g/dL (32.0-36.0); Mean Corpuscular Hemoglobin 23.8 pg (27.0-33.0); Mean Corpuscular Volume 84.4 fl (81.6-98.3); Mean Platelet Volume 9.1 fl (7.4-10.4); Platelet Count 353 10x3/uL (150-450); RBC Distribution Width 27.8 % (11.5-14.5); Red Blood Cell (RBC) Count 3.65 10x6/uL (3.90-5.03); White Blood Cell (WBC) Count 10.6 10x3/uL (3.5-10.5)
[2022-08-22 05:58] LABS: Anion Gap 10 mmol/L (10-20); BUN (Urea Nitrogen) 6 mg/dL (7.0-18.7); Calc. Creatinine Clearance 253 mL/min (70-130); Calcium 7.5 mg/dL (7.8-10.44); Carbon Dioxide 27 mmol/L (22-29); Chloride 105 mmol/L (98-107); Estimated GFR 121; Glucose 78 mg/dL (70-105); Magnesium 1.9 mg/dL (1.6-2.6); Potassium 4.1 mmol/L (3.5-5.1); Sodium 138 mmol/L (136-145)
[2022-08-22 06:14] LABS: Platelet Morphology Comment Appears Adequate
[2022-08-22 06:15] LABS: Hypochromia SLIGHT = 6-15 cells (100X) (0-5/hpf); Microcytosis SLIGHT = 6-15 cells (100X) (0-5/hpf)
[2022-08-22 06:16] LABS: Anisocytosis SLIGHT = 6-15 cells (100X) (0-5/hpf); Macrocytosis SLIGHT = 6-15 cells (100X) (0-5/hpf)
[2022-08-22] MEDS: HYDROcodone/Acetaminophen 10/325 mg Tablet PO SCH ×3 (08:31→21:22)
[2022-08-22] MEDS: Metoprolol Tartrate 25 MG TAB PO SCH ×2 (08:34→21:23)
[2022-08-22] MEDS: Pregabalin 75 MG CAP PO SCH ×2 (08:35→21:22)
[2022-08-22] MEDS: Aspirin 81 mg Enteric Coated Tablet PO SCH (08:36)
[2022-08-22] MEDS: Oxymetazoline HCl 0.05% ( 15 ML ) NASAL SCH ×2 (08:37→21:23)
[2022-08-22] MEDS: Escitalopram Oxalate 20 mg Tablet PO SCH (08:44)
[2022-08-22] MEDS: Morphine 4 MG/ML VIAL SLOW IVP PRN ×2 (13:57→18:04)
[2022-08-22] MEDS: Ondansetron PF 4 MG/2 ML Vial IVP PRN (15:49)
[2022-08-22 16:52] LABS: Bilirubin Neg (Negative); Blood, Urine 10 (Negative); Clarity Clear (Clear); Glucose, Urine (Dipstick) Normal (Negative); Ketone, Urine Negative (Negative); Leukocyte 500 (Negative); Nitrite Negative (Negative); Protein, Urine (Dipstick) Negative (Neg-Trace); Specific Gravity, Urine 1.015 (1.005-1.030); Urobilinogen Normal mg/dL (Less than 2)
[2022-08-22 17:44] LABS: Bacteria/HPF Rare-Few HPF (None Seen); CAUTI Indications for Culture Dysuria,urgency,freq; RBC/HPF 0-3 HPF (0-3); Squamous Epithelial 0-3 HPF (0-3); WBC/HPF 21-50 HPF (0-3)
[2022-08-22 17:45] LABS: Urine Culture Reflex Yes Yes
[2022-08-22] MEDS: Fluconazole 100 MG TAB PO SCH (18:04)
[2022-08-23 05:41] LABS: Hemoglobin 9.7 g/dL (12.0-15.5); Mean Corpuscular HGB CONC 28.7 g/dL (32.0-36.0); Mean Corpuscular Volume 83.7 fl (81.6-98.3); Mean Platelet Volume 9.5 fl (7.4-10.4); Platelet Count 354 10x3/uL (150-450); RBC Distribution Width 27.6 % (11.5-14.5); Red Blood Cell (RBC) Count 4.04 10x6/uL (3.90-5.03); White Blood Cell (WBC) Count 14.9 10x3/uL (3.5-10.5)
[2022-08-23 05:44] LABS: Anion Gap 12 mmol/L (10-20); BUN (Urea Nitrogen) 8 mg/dL (7.0-18.7); Calc. Creatinine Clearance 253 mL/min (70-130); Carbon Dioxide 27 mmol/L (22-29); Chloride 105 mmol/L (98-107); Estimated GFR 121; Glucose 77 mg/dL (70-105); Potassium 4.2 mmol/L (3.5-5.1); Sodium 140 mmol/L (136-145)
[2022-08-23] MEDS: Morphine 4 MG/ML VIAL SLOW IVP PRN ×3 (05:56→17:51)
[2022-08-23 06:13] LABS: MDiff Complete? YES
[2022-08-23 06:17] LABS: Eosinophils 4 % (0-10); Lymphocytes 30 % (21-51); Monocytes 19 % (0-10); Neutrophil 47 % (42-75)
[2022-08-23 06:19] LABS: Anisocytosis SLIGHT = 6-15 cells (100X) (0-5/hpf); Hypochromia SLIGHT = 6-15 cells (100X) (0-5/hpf); Macrocytosis SLIGHT = 6-15 cells (100X) (0-5/hpf); Microcytosis SLIGHT = 6-15 cells (100X) (0-5/hpf); Platelet Morphology Comment Appears Adequate
[2022-08-23] MEDS: HYDROcodone/Acetaminophen 10/325 mg Tablet PO SCH ×3 (08:55→21:28)
[2022-08-23] MEDS: Pregabalin 75 MG CAP PO SCH ×2 (08:55→21:28)
[2022-08-23] MEDS ORDERED: Ibuprofen 600 MG TAB PO PRN (08:56)
[2022-08-23] MEDS: Metoprolol Tartrate 25 MG TAB PO SCH ×2 (08:58→21:29)
[2022-08-23] MEDS: Aspirin 81 mg Enteric Coated Tablet PO SCH (08:58)
[2022-08-23] MEDS: Escitalopram Oxalate 20 mg Tablet PO SCH (08:58)
[2022-08-23] MEDS: Oxymetazoline HCl 0.05% ( 15 ML ) NASAL SCH ×2 (08:59→21:27)
[2022-08-23] MEDS: Nystatin Powder 15 GM BOT TOP SCH ×3 (08:59→21:27)
[2022-08-23 10:51] LABS: ALT (SGPT) 13 U/L (8-55); AST (SGOT) 22 U/L (5-34); Albumin 2.1 g/dL (3.5-5.0); Alkaline Phosphatase 129 U/L (40-110); Bilirubin, Direct 0.2 mg/dL (0.1-0.3); Bilirubin, Total 0.2 mg/dL (0.2-1.2)
[2022-08-23] MEDS: Fluconazole 100 MG TAB PO SCH (15:25)
[2022-08-24 06:28] LABS: ALT (SGPT) 15 U/L (8-55); AST (SGOT) 18 U/L (5-34); Alkaline Phosphatase 136 U/L (40-110); Anion Gap 13 mmol/L (10-20); BUN (Urea Nitrogen) 10 mg/dL (7.0-18.7); Bilirubin, Direct 0.1 mg/dL (0.1-0.3); Bilirubin, Total 0.2 mg/dL (0.2-1.2); Calc. Creatinine Clearance 253 mL/min (70-130); Carbon Dioxide 29 mmol/L (22-29); Chloride 104 mmol/L (98-107); Estimated GFR 121; Glucose 87 mg/dL (70-105); Magnesium 2.1 mg/dL (1.6-2.6); Potassium 4.5 mmol/L (3.5-5.1); Protein, Total 5.8 g/dL (6.0-8.3); Sodium 141 mmol/L (136-145)
[2022-08-24 07:05] LABS: #Eosinphils 0.4 10x3/uL (0.0-0.5); %Basophils 0.4 % (0.0-2.0); %Eosinophils 4.4 % (0.0-6.0); %Lymphocytes 29.4 % (18.0-47.0); %Monocytes 10.7 % (0.0-10.0); %Neutrophils 54.7 % (40.0-75.0); Hemoglobin 9.3 g/dL (12.0-15.5); Mean Corpuscular HGB CONC 29.2 g/dL (32.0-36.0); Mean Corpuscular Volume 82.2 fl (81.6-98.3); Mean Platelet Volume 9.4 fl (7.4-10.4); Platelet Count 375 10x3/uL (150-450); RBC Distribution Width 27.3 % (11.5-14.5); Red Blood Cell (RBC) Count 3.87 10x6/uL (3.90-5.03); White Blood Cell (WBC) Count 9.2 10x3/uL (3.5-10.5)
[2022-08-24 07:18] LABS: Anisocytosis SLIGHT = 6-15 cells (100X) (0-5/hpf); Hypochromia SLIGHT = 6-15 cells (100X) (0-5/hpf); Macrocytosis SLIGHT = 6-15 cells (100X) (0-5/hpf); Microcytosis SLIGHT = 6-15 cells (100X) (0-5/hpf); Platelet Morphology Comment Appears Adequate
[2022-08-24] MEDS: Aspirin 81 mg Enteric Coated Tablet PO SCH (09:14)
[2022-08-24] MEDS: Escitalopram Oxalate 20 mg Tablet PO SCH (09:15)
[2022-08-24] MEDS: HYDROcodone/Acetaminophen 10/325 mg Tablet PO SCH ×2 (09:16→14:33)
[2022-08-24] MEDS: Metoprolol Tartrate 25 MG TAB PO SCH (09:18)
[2022-08-24] MEDS: Pregabalin 75 MG CAP PO SCH (09:18)
[2022-08-24] MEDS: Nystatin Powder 15 GM BOT TOP SCH ×2 (09:38→15:39)
[2022-08-24] MEDS: Oxymetazoline HCl 0.05% ( 15 ML ) NASAL SCH (09:39)
[2022-08-24] MEDS: Fluconazole 100 MG TAB PO SCH (15:26)
[2022-08-24 17:09] VITALS: BP 113/70; TEMP 98.6
[2022-08-24] MEDS: Morphine 4 MG/ML VIAL SLOW IVP PRN (18:46)
== END 2022-08-24 19:07 | disposition home or self-care (01) | DRG 698 ==
LOC: CSHERS 10:51 → CSHTELE 17:23
PROVIDERS: ADMIT Family Medicine; ATTEND Internal Medicine
PROC: 05HC33Z Insertion of Infusion Device into Left Basilic Vein, Percutaneous Approach (ICD-10-PCS; principal; 2022-08-18)
PROC: 3E03329 Introduction of Other Anti-infective into Peripheral Vein, Percutaneous Approach (ICD-10-PCS; 2022-08-18)
PROC: 30233J1 Transfusion of Nonautologous Serum Albumin into Peripheral Vein, Percutaneous Approach (ICD-10-PCS; 2022-08-20)
DX: T83.511A Infection and inflammatory reaction due to indwelling urethral catheter, initial encounter (principal); A41.9 Sepsis, unspecified organism; L89.314 Pressure ulcer of right buttock, stage 4; R53.2 Functional quadriplegia; N39.0 Urinary tract infection, site not specified; E66.9 Obesity, unspecified; G71.00 Muscular dystrophy, unspecified; F32.9 Major depressive disorder, single episode, unspecified; I10 Essential (primary) hypertension; Y83.8 Other surgical procedures as the cause of abnormal reaction of the patient, or of later complication, without mention of misadventure at the time of the procedure; Z20.822 Contact with and (suspected) exposure to COVID-19; E03.9 Hypothyroidism, unspecified; Z88.1 Allergy status to other antibiotic agents; Z88.0 Allergy status to penicillin; Z79.899 Other long term (current) drug therapy; Z79.82 Long term (current) use of aspirin; Z98.890 Other specified postprocedural states; Z74.01 Bed confinement status; Z68.33 Body mass index [BMI] 33.0-33.9, adult
CPT/HCPCS: 36415; 71045; 71250; 74177; 80048; 80053; 80076; 80202; 81001; 81003; 81015; 83605; 83690; 83735; 83880; 85025; 85652; 86140; 87040; 87081; 87086; 93005; 93306; 94760; 94762; 96365; 96375; 97139; J0692; J1650; J2185; J2270; J2405; J2550; J3370; J3480; J3490; J7050; P9047; Q0169

== ENCOUNTER 2022-09-05 12:37 | Inpatient (IN) | payer OTHER ==
[2022-09-05 14:30] LABS: Bilirubin Neg (Negative); Blood, Urine 25 (Negative); Clarity Slightly Cloudy (Clear); Glucose, Urine (Dipstick) Normal (Negative); Ketone, Urine Negative (Negative); Leukocyte 500 (Negative); Nitrite Positive (Negative); Protein, Urine (Dipstick) Negative (Neg-Trace); Specific Gravity, Urine 1.015 (1.005-1.030); Urobilinogen Normal mg/dL (Less than 2)
[2022-09-05] MEDS ORDERED: HYDROcodone/Acetaminophen 5/325 mg Tablet ONE (14:37)
[2022-09-05] MEDS ORDERED: cefTRIAXone (ROCEPHIN) 1 GM VIAL ONE (14:38)
[2022-09-05 14:41] LABS: #Basophils 0.1 10x3/uL (0.0-0.2); #Monocytes 0.9 10x3/uL (0.0-1.1); #Neutrophils 12.2 10x3/uL (1.5-8.4); %Basophils 0.6 % (0.0-2.0); %Eosinophils 0.1 % (0.0-6.0); %Monocytes 5.5 % (0.0-10.0); %Neutrophils 76.9 % (40.0-75.0); Hemoglobin 12.1 g/dL (12.0-15.5); Mean Corpuscular HGB CONC 29.4 g/dL (32.0-36.0); Mean Corpuscular Hemoglobin 24.1 pg (27.0-33.0); Mean Corpuscular Volume 81.9 fl (81.6-98.3); Mean Platelet Volume 8.9 fl (7.4-10.4); Platelet Count 921 10x3/uL (150-450); RBC Distribution Width 25.6 % (11.5-14.5); Red Blood Cell (RBC) Count 5.02 10x6/uL (3.90-5.03); White Blood Cell (WBC) Count 15.9 10x3/uL (3.5-10.5)
[2022-09-05 14:48] LABS: RBC/HPF 0-3 HPF (0-3); Squamous Epithelial 0-3 HPF (0-3)
[2022-09-05 14:49] LABS: Bacteria/HPF 2+ HPF (None Seen)
[2022-09-05 14:55] LABS: ALT (SGPT) 15 U/L (8-55); AST (SGOT) 25 U/L (5-34); Albumin 2.6 g/dL (3.5-5.0); Alkaline Phosphatase 144 U/L (40-110); Anion Gap 17 mmol/L (10-20); BUN (Urea Nitrogen) 19 mg/dL (7.0-18.7); Bilirubin, Total 0.2 mg/dL (0.2-1.2); Calc. Creatinine Clearance 0 mL/min (70-130); Calcium 8.9 mg/dL (7.8-10.44); Carbon Dioxide 30 mmol/L (22-29); Chloride 98 mmol/L (98-107); Estimated GFR 116; Globulin 5.7 g/dL (2.4-3.5); Glucose 113 mg/dL (70-105); Potassium 3.3 mmol/L (3.5-5.1); Protein, Total 8.3 g/dL (6.0-8.3); Sodium 142 mmol/L (136-145)
[2022-09-05] MEDS ORDERED: Morphine 4 MG/ML VIAL ONE ×2 (15:15→23:26)
[2022-09-05 15:24] LABS: Elliptocytes SLIGHT = 2-5 cells (100X) (0-1/hpf); Macrocytosis SLIGHT = 6-15 cells (100X) (0-5/hpf); Ovalocytes SLIGHT = 2-5 cells (100X) (0-1/hpf)
[2022-09-05 15:25] LABS: Large Platelets SLIGHT; Platelet Clumps SLIGHT; Platelet Morphology Comment Appears Increased
[2022-09-05] MEDS ORDERED: Acetaminophen 650 MG Suppository PR PRN (18:00)
[2022-09-05] MEDS ORDERED: Metoclopramide HCl 10 MG/2 ML VIAL IVP PRN (18:06)
[2022-09-05] MEDS ORDERED: Electrolyte Replacement Protocol 1 EACH FS SCH (18:15)
[2022-09-05 18:33] LABS: Phosphorus 4.6 mg/dL (2.3-4.7)
[2022-09-05] MEDS ORDERED: NS 0.9% w/ 40 MEQ KCL 1,000 ML IV ONE (18:39)
[2022-09-05] MEDS: NS 0.9% w/ 40 MEQ KCL 1,000 ML IV SCH (18:52)
[2022-09-05] MEDS ORDERED: Cefepime 2 GM VIAL ONE (20:19)
[2022-09-05] MEDS: Cefepime 2 GM in Sodium Chloride 0.9% 100 ML IVPB SCH (21:23)
[2022-09-05] MEDS: Nystatin 500,000 UNITS/5 ML UDCUP SSP SCH (21:23)
[2022-09-05] MEDS ORDERED: Potassium Chloride 20 MEQ/100 ML PREMIX BAG ONE (21:39)
[2022-09-05] MEDS: Potassium Chloride 20 MEQ in Premix Bag 1 BAG IVPB SCH (21:48)
[2022-09-05] MEDS: Morphine 4 MG/ML VIAL SLOW IVP PRN (23:35)
[2022-09-06] MEDS ORDERED: Potassium Chloride 20 MEQ/100 ML PREMIX BAG ONE (00:05)
[2022-09-06] MEDS: Potassium Chloride 20 MEQ in Premix Bag 1 BAG IVPB SCH (00:20)
[2022-09-06 04:07] LABS: Anion Gap 22 mmol/L (10-20); BUN (Urea Nitrogen) 16 mg/dL (7.0-18.7); Calc. Creatinine Clearance 0 mL/min (70-130); Calcium 8.4 mg/dL (7.8-10.44); Carbon Dioxide 23 mmol/L (22-29); Chloride 100 mmol/L (98-107); Estimated GFR 119; Glucose 63 mg/dL (70-105); Magnesium 1.9 mg/dL (1.6-2.6); Phosphorus 3.9 mg/dL (2.3-4.7); Sodium 141 mmol/L (136-145)
[2022-09-06] MEDS ORDERED: Magnesium 2 GM/50 ML(in water) 2 GM in Premix Bag 1 BAG IVPB SCH (04:15)
[2022-09-06] MEDS ORDERED: Magnesium 2 GM/50 ML BAG (IN WATER) ONE (05:34)
[2022-09-06 07:48] LABS: Hemoglobin 10.9 g/dL (12.0-15.5); Mean Corpuscular HGB CONC 29.5 g/dL (32.0-36.0); Mean Corpuscular Hemoglobin 24.2 pg (27.0-33.0); Mean Corpuscular Volume 82.2 fl (81.6-98.3); Mean Platelet Volume 8.9 fl (7.4-10.4); Platelet Count 759 10x3/uL (150-450); RBC Distribution Width 25.3 % (11.5-14.5); White Blood Cell (WBC) Count 20.3 10x3/uL (3.5-10.5)
[2022-09-06 08:05] LABS: MDiff Complete? YES
[2022-09-06 08:16] LABS: Lymphocytes 18 % (21-51)
[2022-09-06 08:17] LABS: Hypochromia SLIGHT = 6-15 cells (100X) (0-5/hpf); Monocytes 17 % (0-10); Neutrophil 65 % (42-75); Platelet Morphology Comment Appears Increased
[2022-09-06 08:18] LABS: Anisocytosis MODERATE=16-30 cells (100X) (0-5/hpf)
[2022-09-06 08:19] LABS: Macrocytosis SLIGHT = 6-15 cells (100X) (0-5/hpf); Microcytosis SLIGHT = 6-15 cells (100X) (0-5/hpf); Ovalocytes SLIGHT = 2-5 cells (100X) (0-1/hpf)
[2022-09-06] MEDS ORDERED: NS 0.9% w/ 40 MEQ KCL 1,000 ML IV ONE (09:41)
[2022-09-06] MEDS ORDERED: Cefepime 2 GM VIAL ONE (09:41)
[2022-09-06] MEDS ORDERED: Metoprolol Tartrate 5 MG/5 ML VIAL ONE (09:41)
[2022-09-06] MEDS: Cefepime 2 GM in Sodium Chloride 0.9% 100 ML IVPB SCH ×2 (10:00→22:19)
[2022-09-06] MEDS ORDERED: VANCOMYCIN 1.75 GM/350 ML BAG 1.75 GM in Premix Bag 1 BAG IVPB SCH (10:00)
[2022-09-06] MEDS: NS 0.9% w/ 40 MEQ KCL 1,000 ML IV SCH ×2 (10:01→22:47)
[2022-09-06] MEDS: Nystatin 500,000 UNITS/5 ML UDCUP SSP SCH ×4 (10:04→22:05)
[2022-09-06] MEDS ORDERED: Metoclopramide HCl 10 MG/2 ML VIAL ONE (10:20)
[2022-09-06] MEDS ORDERED: Lidocaine 2% 6 ML SYR TOP PRN (12:54)
[2022-09-06] MEDS: Metoprolol Tartrate 5 MG/5 ML VIAL IVP SCH ×2 (14:34→18:43)
[2022-09-06] MEDS: Morphine 4 MG/ML VIAL SLOW IVP PRN (16:26)
[2022-09-06] MEDS ORDERED: Eucerin (Mineral Oil/Petrolatum,White) 30 gm Jar TOP SCH (21:00)
[2022-09-06] MEDS: Vancomycin HCl 1 GM in Sodium Chloride 0.9% 250 ML 250 ML IVPB SCH (22:04)
[2022-09-06] MEDS: Metoprolol Tartrate 25 MG TAB PO SCH (22:05)
[2022-09-06] MEDS: HYDROcodone/Acetaminophen 10/325 mg Tablet PO SCH (22:05)
[2022-09-06] MEDS: Pregabalin 75 MG CAP PO SCH (22:15)
[2022-09-06] MEDS: Nystatin Powder 15 GM BOT TOP SCH (22:34)
[2022-09-06] MEDS ORDERED: Moisturizing Cream (Eucerin) 113 GM JAR TOP SCH (22:45)
[2022-09-07 05:08] LABS: #Basophils 0.1 10x3/uL (0.0-0.2); #Eosinphils 0.2 10x3/uL (0.0-0.5); #Monocytes 1.4 10x3/uL (0.0-1.1); #Neutrophils 10.1 10x3/uL (1.5-8.4); %Basophils 0.7 % (0.0-2.0); %Eosinophils 1.5 % (0.0-6.0); %Lymphocytes 24.9 % (18.0-47.0); %Monocytes 8.5 % (0.0-10.0); %Neutrophils 62.9 % (40.0-75.0); Hemoglobin 10.4 g/dL (12.0-15.5); Mean Corpuscular HGB CONC 29.9 g/dL (32.0-36.0); Mean Corpuscular Hemoglobin 24.1 pg (27.0-33.0); Mean Corpuscular Volume 80.7 fl (81.6-98.3); Mean Platelet Volume 9.1 fl (7.4-10.4); Platelet Count 772 10x3/uL (150-450); RBC Distribution Width 25.2 % (11.5-14.5); Red Blood Cell (RBC) Count 4.31 10x6/uL (3.90-5.03); White Blood Cell (WBC) Count 16.1 10x3/uL (3.5-10.5)
[2022-09-07 05:17] LABS: Anion Gap 18 mmol/L (10-20); BUN (Urea Nitrogen) 9 mg/dL (7.0-18.7); Calc. Creatinine Clearance 265 mL/min (70-130); Carbon Dioxide 20 mmol/L (22-29); Chloride 106 mmol/L (98-107); Estimated GFR 121; Glucose 79 mg/dL (70-105); Potassium 4.1 mmol/L (3.5-5.1); Sodium 140 mmol/L (136-145)
[2022-09-07] MEDS: Morphine 4 MG/ML VIAL SLOW IVP PRN ×2 (07:02→13:32)
[2022-09-07] MEDS: Pregabalin 75 MG CAP PO SCH ×2 (09:00→09:48)
[2022-09-07] MEDS: Escitalopram Oxalate 20 mg Tablet PO SCH (09:05)
[2022-09-07] MEDS ORDERED: NS 0.9% w/ 40 MEQ KCL 1,000 ML IV SCH (09:26)
[2022-09-07] MEDS: Cefepime 2 GM in Sodium Chloride 0.9% 100 ML IVPB SCH ×2 (09:27→22:38)
[2022-09-07] MEDS: Aspirin 81 mg Enteric Coated Tablet PO SCH (09:30)
[2022-09-07] MEDS ORDERED: Baclofen 10 MG TAB PO SCH ×2 (09:30→15:00)
[2022-09-07] MEDS: Nystatin 500,000 UNITS/5 ML UDCUP SSP SCH ×2 (09:30→22:42)
[2022-09-07] MEDS: HYDROcodone/Acetaminophen 10/325 mg Tablet PO SCH ×3 (09:31→22:42)
[2022-09-07] MEDS: Metoprolol Tartrate 25 MG TAB PO SCH ×2 (09:31→22:42)
[2022-09-07] MEDS: Moisturizing Cream (Eucerin) 113 GM JAR TOP SCH ×2 (09:34→22:58)
[2022-09-07] MEDS: Nystatin Powder 15 GM BOT TOP SCH ×2 (09:34→23:00)
[2022-09-07] MEDS: Vancomycin HCl 1 GM in Sodium Chloride 0.9% 250 ML 250 ML IVPB SCH ×2 (12:00→22:39)
[2022-09-07] MEDS ORDERED: Naloxone HCl 0.4 mg/ml Vial IV PRN (14:07)
[2022-09-07 15:19] LABS: Magnesium 1.7 mg/dL (1.6-2.6); Phosphorus 3.1 mg/dL (2.3-4.7)
[2022-09-07] MEDS: Baclofen 10 MG TAB PO SCH ×2 (15:35→22:42)
[2022-09-07] MEDS ORDERED: Magnesium 2 GM/50 ML(in water) 2 GM in Premix Bag 1 BAG IVPB SCH (15:45)
[2022-09-07 15:54] LABS: Free T4 (Free Thyroxine) 1.18 ng/dL (0.70-1.48); Thyroid Stimulating Hormone 1.1038 uIU/mL (0.35-4.94)
[2022-09-07] MEDS: Thiamine HCl 500 MG, Admixture Fee 1 EACH in Sodium Chloride 0.9% 50 ML IVPB SCH ×2 (16:00→22:56)
[2022-09-07] MEDS: Promethazine HCl 12.5 MG in Sodium Chloride 0.9% 50 ML IVPB PRN (22:38)
[2022-09-07] MEDS: Pregabalin 25 MG CAP PO SCH (22:41)
[2022-09-07 23:09] LABS: Vancomycin, Trough 25.7 ug/mL
[2022-09-08 06:13] LABS: Anion Gap 24 mmol/L (10-20); BUN (Urea Nitrogen) 6 mg/dL (7.0-18.7); Calc. Creatinine Clearance 265 mL/min (70-130); Calcium 8.4 mg/dL (7.8-10.44); Carbon Dioxide 14 mmol/L (22-29); Chloride 105 mmol/L (98-107); Estimated GFR 121; Glucose 69 mg/dL (70-105); Magnesium 1.5 mg/dL (1.6-2.6); Sodium 139 mmol/L (136-145)
[2022-09-08 06:29] LABS: Hemoglobin 11.1 g/dL (12.0-15.5); Mean Corpuscular HGB CONC 30.2 g/dL (32.0-36.0); Mean Corpuscular Hemoglobin 24.3 pg (27.0-33.0); Mean Corpuscular Volume 80.7 fl (81.6-98.3); Mean Platelet Volume 9.1 fl (7.4-10.4); Platelet Count 805 10x3/uL (150-450); RBC Distribution Width 25.2 % (11.5-14.5); Red Blood Cell (RBC) Count 4.56 10x6/uL (3.90-5.03)
[2022-09-08 06:31] LABS: MDiff Complete? YES
[2022-09-08 08:04] LABS: Hypochromia SLIGHT = 6-15 cells (100X) (0-5/hpf); Macrocytosis SLIGHT = 6-15 cells (100X) (0-5/hpf); Microcytosis SLIGHT = 6-15 cells (100X) (0-5/hpf)
[2022-09-08 08:06] LABS: Ovalocytes SLIGHT = 2-5 cells (100X) (0-1/hpf)
[2022-09-08 08:08] LABS: Platelet Morphology Comment Appears Increased
[2022-09-08] MEDS ORDERED: Magnesium 2 GM/50 ML(in water) 2 GM in Premix Bag 1 BAG IVPB SCH (09:00)
[2022-09-08] MEDS: Cefepime 2 GM in Sodium Chloride 0.9% 100 ML IVPB SCH ×2 (10:21→20:39)
[2022-09-08] MEDS: Moisturizing Cream (Eucerin) 113 GM JAR TOP SCH ×2 (10:22→20:48)
[2022-09-08] MEDS: Nystatin Powder 15 GM BOT TOP SCH ×2 (10:24→21:44)
[2022-09-08] MEDS ORDERED: Morphine 4 MG/ML VIAL SLOW IVP PRN (12:34)
[2022-09-08] MEDS ORDERED: HumaLOG 300 UNITS/3 ML VIAL SC PRN (12:36)
[2022-09-08] MEDS ORDERED: Dextrose 5% in Water 1,000 ML IV PRN (12:36)
[2022-09-08] MEDS ORDERED: Dextrose 50% Abboject 50 ML SYRINGE SLOW IVP PRN (12:36)
[2022-09-08] MEDS ORDERED: Metoprolol Tartrate 5 MG/5 ML VIAL IVP SCH ×2 (13:00→21:00)
[2022-09-08 13:41] LABS: Lactic Acid 0.7 mmol/L (0.5-2.2)
[2022-09-08 13:43] LABS: Phosphorus 3.1 mg/dL (2.3-4.7)
[2022-09-08 13:44] LABS: Acetaminophen Less than 10.0 mcg/mL (10.0-30.0); Alcohol Less than 10 mg/dL (Less than 10); Calcium 8.4 mg/dL (7.8-10.44); Magnesium 2.3 mg/dL (1.6-2.6); Salicylate Less than 8.0 mg/dL (15.0-30.0)
[2022-09-08 13:45] LABS: ALT (SGPT) 16 U/L (8-55); AST (SGOT) 29 U/L (5-34); Acetaminophen Less than 10.0 mcg/mL (10.0-30.0); Albumin 2.3 g/dL (3.5-5.0); Alcohol Less than 10 mg/dL (Less than 10); Alkaline Phosphatase 130 U/L (40-110); Bilirubin, Direct 0.2 mg/dL (0.1-0.3); Bilirubin, Total 0.3 mg/dL (0.2-1.2); CK (CPK) 10 U/L (29-168); Protein, Total 7.3 g/dL (6.0-8.3)
[2022-09-08] MEDS: Baclofen 10 MG TAB PO SCH ×3 (15:35→21:43)
[2022-09-08] MEDS ORDERED: Morphine 2 MG/ML VIAL SLOW IVP PRN (15:35)
[2022-09-08] MEDS: Aspirin 81 mg Enteric Coated Tablet PO SCH (15:35)
[2022-09-08] MEDS: Escitalopram Oxalate 20 mg Tablet PO SCH (15:36)
[2022-09-08] MEDS: Pregabalin 25 MG CAP PO SCH ×2 (15:38→20:35)
[2022-09-08] MEDS: Metoprolol Tartrate 25 MG TAB PO SCH ×2 (15:38→20:35)
[2022-09-08] MEDS: Lorazepam 2 MG/ML VIAL SLOW IVP PRN (15:45)
[2022-09-08] MEDS: HYDROcodone/Acetaminophen 10/325 mg Tablet PO SCH ×2 (15:59→20:35)
[2022-09-08] MEDS: Thiamine HCl 500 MG, Admixture Fee 1 EACH in Sodium Chloride 0.9% 50 ML IVPB SCH ×3 (16:06→20:37)
[2022-09-08] MEDS: Nystatin 500,000 UNITS/5 ML UDCUP SSP SCH ×3 (16:16→21:30)
[2022-09-08 16:33] LABS: Amphetamine Not Detected (NotDetected); Barbiturates Screen Not Detected (NotDetected); Benzodiazepine Screen Not Detected (NotDetected); Cocaine Metabolite Screen Not Detected (NotDetected); Methadone Not Detected (NotDetected); Methamphetamine Not Detected (NotDetected); Opiate Screen Detected (NotDetected); Oxycodone Screen Not Detected (NotDetected); Phencyclidine (PCP) Not Detected (NotDetected); THC/Cannabinoid Screen Not Detected (NotDetected); Tricyclic Screen Not Detected (NotDetected)
[2022-09-08] MEDS: Promethazine 25 MG TAB PO PRN (16:50)
[2022-09-08] MEDS: Morphine 4 MG/ML VIAL SLOW IVP PRN (17:11)
[2022-09-08] MEDS: Vancomycin HCl 750 MG in Sodium Chloride 0.9% 250 ML 250 ML IVPB SCH (23:32)
[2022-09-09 03:36] LABS: Hemoglobin 11.4 g/dL (12.0-15.5); MDiff Complete? YES; Mean Corpuscular HGB CONC 29.4 g/dL (32.0-36.0); Mean Corpuscular Hemoglobin 23.9 pg (27.0-33.0); Mean Corpuscular Volume 81.5 fl (81.6-98.3); Mean Platelet Volume 9.2 fl (7.4-10.4); Platelet Count 738 10x3/uL (150-450); RBC Distribution Width 25.4 % (11.5-14.5); Red Blood Cell (RBC) Count 4.76 10x6/uL (3.90-5.03)
[2022-09-09] MEDS: Morphine 4 MG/ML VIAL SLOW IVP PRN ×3 (03:40→16:37)
[2022-09-09 03:56] LABS: Anion Gap 16 mmol/L (10-20); BUN (Urea Nitrogen) 9 mg/dL (7.0-18.7); Calc. Creatinine Clearance 241 mL/min (70-130); Calcium 8.4 mg/dL (7.8-10.44); Carbon Dioxide 21 mmol/L (22-29); Chloride 107 mmol/L (98-107); Estimated GFR 118; Glucose 98 mg/dL (70-105); Potassium 3.4 mmol/L (3.5-5.1); Sodium 141 mmol/L (136-145)
[2022-09-09 04:08] LABS: Lymphocytes 14 % (21-51); Monocytes 23 % (0-10); Neutrophil 63 % (42-75)
[2022-09-09 04:11] LABS: Macrocytosis SLIGHT = 6-15 cells (100X) (0-5/hpf); Microcytosis SLIGHT = 6-15 cells (100X) (0-5/hpf); Ovalocytes SLIGHT = 2-5 cells (100X) (0-1/hpf); Platelet Morphology Comment Appears Increased
[2022-09-09] MEDS ORDERED: Magnesium 2 GM/50 ML(in water) 2 GM in Premix Bag 1 BAG IVPB SCH (04:30)
[2022-09-09] MEDS: Potassium Chloride 20 MEQ in Premix Bag 1 BAG IVPB SCH ×2 (05:38→09:19)
[2022-09-09] MEDS: Nystatin 500,000 UNITS/5 ML UDCUP SSP SCH ×5 (07:29→20:38)
[2022-09-09] MEDS: HYDROcodone/Acetaminophen 10/325 mg Tablet PO SCH ×4 (07:30→20:35)
[2022-09-09] MEDS: Cefepime 2 GM in Sodium Chloride 0.9% 100 ML IVPB SCH (08:05)
[2022-09-09] MEDS: Aspirin 81 mg Enteric Coated Tablet PO SCH (08:06)
[2022-09-09] MEDS: Escitalopram Oxalate 20 mg Tablet PO SCH (08:07)
[2022-09-09] MEDS: Metoprolol Tartrate 25 MG TAB PO SCH ×2 (08:07→20:34)
[2022-09-09] MEDS: Thiamine HCl 500 MG, Admixture Fee 1 EACH in Sodium Chloride 0.9% 50 ML IVPB SCH (08:08)
[2022-09-09] MEDS: Baclofen 10 MG TAB PO SCH ×3 (08:42→22:24)
[2022-09-09] MEDS: Moisturizing Cream (Eucerin) 113 GM JAR TOP SCH ×2 (08:44→20:39)
[2022-09-09] MEDS: Pregabalin 25 MG CAP PO SCH ×2 (08:46→20:34)
[2022-09-09] MEDS: Nystatin Powder 15 GM BOT TOP SCH ×2 (08:46→20:39)
[2022-09-09] MEDS ORDERED: Potassium Chloride 20 MEQ in Premix Bag 1 BAG IVPB SCH (09:00)
[2022-09-09] MEDS: Vancomycin HCl 750 MG in Sodium Chloride 0.9% 250 ML 250 ML IVPB SCH (10:53)
[2022-09-09 11:17] LABS: Mean Corpuscular HGB CONC 29.4 g/dL (32.0-36.0); Mean Corpuscular Hemoglobin 24.1 pg (27.0-33.0); Mean Corpuscular Volume 81.8 fl (81.6-98.3); Mean Platelet Volume 9.2 fl (7.4-10.4); Platelet Count 709 10x3/uL (150-450); RBC Distribution Width 25.1 % (11.5-14.5); Red Blood Cell (RBC) Count 4.57 10x6/uL (3.90-5.03); White Blood Cell (WBC) Count 27.8 10x3/uL (3.5-10.5)
[2022-09-09 11:18] LABS: MDiff Complete? YES
[2022-09-09 11:36] LABS: Eosinophils 1 % (0-10); Lymphocytes 15 % (21-51); Monocytes 17 % (0-10); Neutrophil 65 % (42-75); Reactive Lymphocytes 1 % (0-10)
[2022-09-09 11:39] LABS: Anisocytosis SLIGHT = 6-15 cells (100X) (0-5/hpf); Hypochromia SLIGHT = 6-15 cells (100X) (0-5/hpf); Macrocytosis SLIGHT = 6-15 cells (100X) (0-5/hpf); Microcytosis SLIGHT = 6-15 cells (100X) (0-5/hpf)
[2022-09-09 11:40] LABS: Ovalocytes SLIGHT = 2-5 cells (100X) (0-1/hpf); Platelet Morphology Comment Appears Increased
[2022-09-09] MEDS: Thiamine HCl 250 MG, Admixture Fee 1 EACH in Sodium Chloride 0.9% 50 ML IVPB SCH (14:12)
[2022-09-09] MEDS: Scopolamine 1.5 mg/72 hour Patch TD SCH (14:14)
[2022-09-09] MEDS: cefTRIAXone\\ROCEPHIN 2 GM in Sodium Chloride 0.9% 100 ML IVPB SCH (20:36)
[2022-09-09 23:14] LABS: Vancomycin, Trough 19.5 ug/mL
[2022-09-10 05:05] LABS: #Basophils 0.1 10x3/uL (0.0-0.2); #Eosinphils 0.3 10x3/uL (0.0-0.5); #Monocytes 2.6 10x3/uL (0.0-1.1); #Neutrophils 12.6 10x3/uL (1.5-8.4); %Basophils 0.4 % (0.0-2.0); %Eosinophils 1.5 % (0.0-6.0); %Lymphocytes 16.7 % (18.0-47.0); %Monocytes 13.6 % (0.0-10.0); %Neutrophils 66.2 % (40.0-75.0); Hemoglobin 10.4 g/dL (12.0-15.5); Mean Corpuscular Hemoglobin 24.2 pg (27.0-33.0); Mean Corpuscular Volume 80.7 fl (81.6-98.3); Mean Platelet Volume 9.1 fl (7.4-10.4); Platelet Count 733 10x3/uL (150-450); RBC Distribution Width 25.4 % (11.5-14.5); White Blood Cell (WBC) Count 19.1 10x3/uL (3.5-10.5)
[2022-09-10 05:16] LABS: Anion Gap 16 mmol/L (10-20); BUN (Urea Nitrogen) 11 mg/dL (7.0-18.7); Calc. Creatinine Clearance 265 mL/min (70-130); Calcium 8.1 mg/dL (7.8-10.44); Carbon Dioxide 23 mmol/L (22-29); Chloride 107 mmol/L (98-107); Estimated GFR 121; Glucose 84 mg/dL (70-105); Potassium 4.3 mmol/L (3.5-5.1); Sodium 142 mmol/L (136-145)
[2022-09-10] MEDS ORDERED: Magnesium 2 GM/50 ML(in water) 2 GM in Premix Bag 1 BAG IVPB SCH (06:00)
[2022-09-10] MEDS: Metoprolol Tartrate 25 MG TAB PO SCH ×2 (06:41→19:47)
[2022-09-10] MEDS: Aspirin 81 mg Enteric Coated Tablet PO SCH (08:19)
[2022-09-10] MEDS: Baclofen 10 MG TAB PO SCH ×3 (08:19→19:48)
[2022-09-10] MEDS: Escitalopram Oxalate 20 mg Tablet PO SCH (08:19)
[2022-09-10] MEDS: Moisturizing Cream (Eucerin) 113 GM JAR TOP SCH ×2 (08:20→19:49)
[2022-09-10] MEDS: Nystatin 500,000 UNITS/5 ML UDCUP SSP SCH ×5 (08:20→19:46)
[2022-09-10] MEDS: Pregabalin 25 MG CAP PO SCH ×2 (08:34→19:46)
[2022-09-10] MEDS: HYDROcodone/Acetaminophen 10/325 mg Tablet PO SCH ×3 (08:35→19:48)
[2022-09-10] MEDS: Nystatin Powder 15 GM BOT TOP SCH ×2 (08:36→19:49)
[2022-09-10] MEDS: Thiamine HCl 250 MG, Admixture Fee 1 EACH in Sodium Chloride 0.9% 50 ML IVPB SCH (15:58)
[2022-09-10] MEDS: cefTRIAXone\\ROCEPHIN 2 GM in Sodium Chloride 0.9% 100 ML IVPB SCH (19:46)
[2022-09-11] MEDS: Lorazepam 2 MG/ML VIAL SLOW IVP PRN (03:06)
[2022-09-11 03:59] LABS: #Basophils 0.1 10x3/uL (0.0-0.2); #Eosinphils 0.2 10x3/uL (0.0-0.5); #Monocytes 1.7 10x3/uL (0.0-1.1); %Basophils 0.5 % (0.0-2.0); %Eosinophils 1.5 % (0.0-6.0); %Lymphocytes 23.7 % (18.0-47.0); %Monocytes 11.7 % (0.0-10.0); %Neutrophils 60.8 % (40.0-75.0); Mean Corpuscular HGB CONC 29.9 g/dL (32.0-36.0); Mean Corpuscular Hemoglobin 24.3 pg (27.0-33.0); Mean Corpuscular Volume 81.1 fl (81.6-98.3); Mean Platelet Volume 9.2 fl (7.4-10.4); Platelet Count 649 10x3/uL (150-450); RBC Distribution Width 25.5 % (11.5-14.5); Red Blood Cell (RBC) Count 4.12 10x6/uL (3.90-5.03); White Blood Cell (WBC) Count 14.8 10x3/uL (3.5-10.5)
[2022-09-11 04:10] LABS: Anion Gap 13 mmol/L (10-20); BUN (Urea Nitrogen) 13 mg/dL (7.0-18.7); Calc. Creatinine Clearance 265 mL/min (70-130); Calcium 7.8 mg/dL (7.8-10.44); Carbon Dioxide 25 mmol/L (22-29); Chloride 108 mmol/L (98-107); Estimated GFR 121; Glucose 86 mg/dL (70-105); Magnesium 2.1 mg/dL (1.6-2.6); Potassium 3.6 mmol/L (3.5-5.1); Sodium 142 mmol/L (136-145)
[2022-09-11 04:23] LABS: Anisocytosis SLIGHT = 6-15 cells (100X) (0-5/hpf); Microcytosis SLIGHT = 6-15 cells (100X) (0-5/hpf); Platelet Morphology Comment Appears Increased
[2022-09-11] MEDS: Pregabalin 25 MG CAP PO SCH ×2 (08:30→21:33)
[2022-09-11] MEDS: Nystatin 500,000 UNITS/5 ML UDCUP SSP SCH ×4 (08:30→21:33)
[2022-09-11] MEDS: Baclofen 10 MG TAB PO SCH ×3 (08:31→21:32)
[2022-09-11] MEDS: Aspirin 81 mg Enteric Coated Tablet PO SCH (08:31)
[2022-09-11] MEDS: Metoprolol Tartrate 25 MG TAB PO SCH ×2 (08:31→21:37)
[2022-09-11] MEDS: Escitalopram Oxalate 20 mg Tablet PO SCH (08:31)
[2022-09-11] MEDS: HYDROcodone/Acetaminophen 10/325 mg Tablet PO SCH ×3 (08:31→21:32)
[2022-09-11] MEDS: Moisturizing Cream (Eucerin) 113 GM JAR TOP SCH ×2 (08:32→21:52)
[2022-09-11] MEDS: Nystatin Powder 15 GM BOT TOP SCH ×2 (09:14→21:53)
[2022-09-11] MEDS: Thiamine HCl 250 MG, Admixture Fee 1 EACH in Sodium Chloride 0.9% 50 ML IVPB SCH (15:57)
[2022-09-11] MEDS: cefTRIAXone\\ROCEPHIN 2 GM in Sodium Chloride 0.9% 100 ML IVPB SCH (21:33)
[2022-09-12 04:37] LABS: #Basophils 0.1 10x3/uL (0.0-0.2); #Eosinphils 0.3 10x3/uL (0.0-0.5); #Monocytes 2.5 10x3/uL (0.0-1.1); #Neutrophils 10.7 10x3/uL (1.5-8.4); %Basophils 0.3 % (0.0-2.0); %Eosinophils 1.6 % (0.0-6.0); %Lymphocytes 20.7 % (18.0-47.0); %Monocytes 14.5 % (0.0-10.0); %Neutrophils 61.9 % (40.0-75.0); Hemoglobin 9.6 g/dL (12.0-15.5); Mean Corpuscular HGB CONC 29.4 g/dL (32.0-36.0); Mean Corpuscular Hemoglobin 24.3 pg (27.0-33.0); Mean Corpuscular Volume 82.5 fl (81.6-98.3); Mean Platelet Volume 10.1 fl (7.4-10.4); Platelet Count 584 10x3/uL (150-450); RBC Distribution Width 25.9 % (11.5-14.5); Red Blood Cell (RBC) Count 3.95 10x6/uL (3.90-5.03); White Blood Cell (WBC) Count 17.4 10x3/uL (3.5-10.5)
[2022-09-12 04:58] LABS: Anisocytosis SLIGHT = 6-15 cells (100X) (0-5/hpf); Hypochromia SLIGHT = 6-15 cells (100X) (0-5/hpf); Microcytosis SLIGHT = 6-15 cells (100X) (0-5/hpf); Ovalocytes SLIGHT = 2-5 cells (100X) (0-1/hpf); Platelet Morphology Comment Appears Increased; Polychromasia SLIGHT = 2-3 cells (100X) (0-2/hpf)
[2022-09-12 05:00] LABS: Anion Gap 13 mmol/L (10-20); BUN (Urea Nitrogen) 15 mg/dL (7.0-18.7); Calc. Creatinine Clearance 265 mL/min (70-130); Carbon Dioxide 28 mmol/L (22-29); Chloride 106 mmol/L (98-107); Estimated GFR 121; Glucose 82 mg/dL (70-105); Potassium 3.5 mmol/L (3.5-5.1); Sodium 143 mmol/L (136-145)
[2022-09-12] MEDS ORDERED: Potassium Chloride 20 MEQ TAB PO SCH (09:00)
[2022-09-12] MEDS: Baclofen 10 MG TAB PO SCH ×2 (09:40→17:55)
[2022-09-12] MEDS: Pregabalin 25 MG CAP PO SCH (09:41)
[2022-09-12] MEDS: Metoprolol Tartrate 25 MG TAB PO SCH (09:41)
[2022-09-12] MEDS: Escitalopram Oxalate 20 mg Tablet PO SCH (09:41)
[2022-09-12] MEDS: HYDROcodone/Acetaminophen 10/325 mg Tablet PO SCH ×2 (09:41→17:55)
[2022-09-12] MEDS: Aspirin 81 mg Enteric Coated Tablet PO SCH (09:42)
[2022-09-12] MEDS: Nystatin Powder 15 GM BOT TOP SCH (09:43)
[2022-09-12] MEDS: Nystatin 500,000 UNITS/5 ML UDCUP SSP SCH ×3 (09:43→17:56)
[2022-09-12] MEDS: Moisturizing Cream (Eucerin) 113 GM JAR TOP SCH (09:44)
[2022-09-12] MEDS: Ondansetron PF 4 MG/2 ML Vial IVP PRN (15:29)
[2022-09-12] MEDS: Promethazine HCl 12.5 MG in Sodium Chloride 0.9% 50 ML IVPB PRN (16:54)
[2022-09-12] MEDS: Scopolamine 1.5 mg/72 hour Patch TD SCH (18:24)
[2022-09-12] MEDS: Thiamine HCl 250 MG, Admixture Fee 1 EACH in Sodium Chloride 0.9% 50 ML IVPB SCH (18:25)
[2022-09-12] MEDS: cefTRIAXone\\ROCEPHIN 2 GM in Sodium Chloride 0.9% 100 ML IVPB SCH (20:34)
[2022-09-13] MEDS: HYDROcodone/Acetaminophen 10/325 mg Tablet PO SCH ×4 (00:42→20:21)
[2022-09-13] MEDS: Lorazepam 2 MG/ML VIAL SLOW IVP PRN (00:43)
[2022-09-13] MEDS: Metoprolol Tartrate 25 MG TAB PO SCH ×3 (00:47→20:21)
[2022-09-13] MEDS: Baclofen 10 MG TAB PO SCH ×4 (00:47→20:22)
[2022-09-13] MEDS: Nystatin 500,000 UNITS/5 ML UDCUP SSP SCH ×5 (00:47→20:21)
[2022-09-13] MEDS: Nystatin Powder 15 GM BOT TOP SCH ×3 (00:47→20:24)
[2022-09-13] MEDS: Moisturizing Cream (Eucerin) 113 GM JAR TOP SCH ×3 (00:47→20:24)
[2022-09-13] MEDS: Pregabalin 25 MG CAP PO SCH ×3 (00:48→20:23)
[2022-09-13] MEDS: Promethazine HCl 12.5 MG in Sodium Chloride 0.9% 50 ML IVPB PRN (01:31)
[2022-09-13 04:50] LABS: Hemoglobin 9.4 g/dL (12.0-15.5); Mean Corpuscular HGB CONC 29.2 g/dL (32.0-36.0); Mean Corpuscular Hemoglobin 24.5 pg (27.0-33.0); Mean Corpuscular Volume 84.1 fl (81.6-98.3); Mean Platelet Volume 9.9 fl (7.4-10.4); Platelet Count 582 10x3/uL (150-450); RBC Distribution Width 26.5 % (11.5-14.5); Red Blood Cell (RBC) Count 3.83 10x6/uL (3.90-5.03); White Blood Cell (WBC) Count 21.9 10x3/uL (3.5-10.5)
[2022-09-13 04:51] LABS: MDiff Complete? YES
[2022-09-13 05:09] LABS: Anion Gap 13 mmol/L (10-20); BUN (Urea Nitrogen) 13 mg/dL (7.0-18.7); Calc. Creatinine Clearance 265 mL/min (70-130); Calcium 8.2 mg/dL (7.8-10.44); Carbon Dioxide 28 mmol/L (22-29); Chloride 107 mmol/L (98-107); Estimated GFR 121; Glucose 88 mg/dL (70-105); Potassium 3.9 mmol/L (3.5-5.1); Sodium 144 mmol/L (136-145)
[2022-09-13 05:38] LABS: Lymphocytes 17 % (21-51); Monocytes 7 % (0-10); Neutrophil 76 % (42-75)
[2022-09-13 05:39] LABS: Anisocytosis SLIGHT = 6-15 cells (100X) (0-5/hpf); Hypochromia SLIGHT = 6-15 cells (100X) (0-5/hpf); Platelet Morphology Comment Appears Increased
[2022-09-13] MEDS: Aspirin 81 mg Enteric Coated Tablet PO SCH (10:25)
[2022-09-13] MEDS: Escitalopram Oxalate 20 mg Tablet PO SCH (10:26)
[2022-09-13] MEDS: Promethazine 25 MG TAB PO PRN (10:34)
[2022-09-13] MEDS: Thiamine HCl 250 MG, Admixture Fee 1 EACH in Sodium Chloride 0.9% 50 ML IVPB SCH (16:12)
[2022-09-13] MEDS: cefTRIAXone\\ROCEPHIN 2 GM in Sodium Chloride 0.9% 100 ML IVPB SCH (20:20)
[2022-09-14 04:54] LABS: #Basophils 0.1 10x3/uL (0.0-0.2); #Eosinphils 0.4 10x3/uL (0.0-0.5); #Neutrophils 9.5 10x3/uL (1.5-8.4); %Basophils 0.3 % (0.0-2.0); %Eosinophils 2.4 % (0.0-6.0); %Lymphocytes 21.6 % (18.0-47.0); %Monocytes 12.9 % (0.0-10.0); %Neutrophils 62.1 % (40.0-75.0); Hemoglobin 9.1 g/dL (12.0-15.5); Mean Corpuscular HGB CONC 29.3 g/dL (32.0-36.0); Mean Corpuscular Volume 85.4 fl (81.6-98.3); Mean Platelet Volume 9.5 fl (7.4-10.4); Platelet Count 532 10x3/uL (150-450); RBC Distribution Width 26.6 % (11.5-14.5); Red Blood Cell (RBC) Count 3.64 10x6/uL (3.90-5.03); White Blood Cell (WBC) Count 15.3 10x3/uL (3.5-10.5)
[2022-09-14 05:07] LABS: Anion Gap 12 mmol/L (10-20); BUN (Urea Nitrogen) 14 mg/dL (7.0-18.7); Calc. Creatinine Clearance 265 mL/min (70-130); Calcium 7.8 mg/dL (7.8-10.44); Carbon Dioxide 29 mmol/L (22-29); Chloride 104 mmol/L (98-107); Estimated GFR 121; Glucose 73 mg/dL (70-105); Potassium 3.5 mmol/L (3.5-5.1); Sodium 141 mmol/L (136-145)
[2022-09-14 05:17] LABS: Anisocytosis SLIGHT = 6-15 cells (100X) (0-5/hpf); Hypochromia SLIGHT = 6-15 cells (100X) (0-5/hpf); Microcytosis SLIGHT = 6-15 cells (100X) (0-5/hpf); Ovalocytes SLIGHT = 2-5 cells (100X) (0-1/hpf); Platelet Morphology Comment Appears Increased
[2022-09-14] MEDS: Ondansetron PF 4 MG/2 ML Vial IVP PRN (07:17)
[2022-09-14] MEDS ORDERED: Potassium Chloride 20 MEQ TAB PO SCH (09:00)
[2022-09-14] MEDS: Promethazine HCl 12.5 MG in Sodium Chloride 0.9% 50 ML IVPB PRN (10:28)
[2022-09-14] MEDS: Pregabalin 25 MG CAP PO SCH ×2 (10:40→22:10)
[2022-09-14] MEDS: Metoprolol Tartrate 25 MG TAB PO SCH ×2 (10:41→22:11)
[2022-09-14] MEDS: Escitalopram Oxalate 20 mg Tablet PO SCH (10:41)
[2022-09-14] MEDS: HYDROcodone/Acetaminophen 10/325 mg Tablet PO SCH ×3 (10:41→22:10)
[2022-09-14] MEDS: Baclofen 10 MG TAB PO SCH ×3 (10:41→22:11)
[2022-09-14] MEDS: Aspirin 81 mg Enteric Coated Tablet PO SCH (10:42)
[2022-09-14] MEDS: Moisturizing Cream (Eucerin) 113 GM JAR TOP SCH ×2 (10:42→22:12)
[2022-09-14] MEDS: Nystatin 500,000 UNITS/5 ML UDCUP SSP SCH ×4 (10:45→22:47)
[2022-09-14] MEDS: Nystatin Powder 15 GM BOT TOP SCH ×2 (10:45→22:12)
[2022-09-14] MEDS: Thiamine HCl 200 MG/2 ML VIAL SLOW IVP SCH (17:40)
[2022-09-14] MEDS: Promethazine 25 MG TAB PO PRN (18:03)
[2022-09-14] MEDS ORDERED: Promethazine 25 MG TAB ONE (18:03)
[2022-09-14] MEDS: cefTRIAXone\\ROCEPHIN 2 GM in Sodium Chloride 0.9% 100 ML IVPB SCH (22:09)
[2022-09-15 04:50] LABS: Anion Gap 11 mmol/L (10-20); BUN (Urea Nitrogen) 7 mg/dL (7.0-18.7); Calc. Creatinine Clearance 265 mL/min (70-130); Carbon Dioxide 28 mmol/L (22-29); Chloride 104 mmol/L (98-107); Estimated GFR 121; Glucose 90 mg/dL (70-105); Potassium 3.8 mmol/L (3.5-5.1); Sodium 139 mmol/L (136-145)
[2022-09-15 05:14] LABS: #Eosinphils 0.2 10x3/uL (0.0-0.5); #Monocytes 1.1 10x3/uL (0.0-1.1); #Neutrophils 5.7 10x3/uL (1.5-8.4); %Basophils 0.4 % (0.0-2.0); %Eosinophils 1.5 % (0.0-6.0); %Lymphocytes 32.9 % (18.0-47.0); %Monocytes 10.6 % (0.0-10.0); %Neutrophils 54.1 % (40.0-75.0); Mean Corpuscular HGB CONC 29.1 g/dL (32.0-36.0); Mean Corpuscular Hemoglobin 24.5 pg (27.0-33.0); Mean Corpuscular Volume 84.2 fl (81.6-98.3); Mean Platelet Volume 9.4 fl (7.4-10.4); Platelet Count 523 10x3/uL (150-450); RBC Distribution Width 26.6 % (11.5-14.5); Red Blood Cell (RBC) Count 3.67 10x6/uL (3.90-5.03); White Blood Cell (WBC) Count 10.6 10x3/uL (3.5-10.5)
[2022-09-15] MEDS: Aspirin 81 mg Enteric Coated Tablet PO SCH (08:47)
[2022-09-15] MEDS: Pregabalin 25 MG CAP PO SCH ×2 (08:47→21:56)
[2022-09-15] MEDS: Metoprolol Tartrate 25 MG TAB PO SCH ×2 (08:47→21:54)
[2022-09-15] MEDS: Nystatin 500,000 UNITS/5 ML UDCUP SSP SCH ×4 (08:47→21:57)
[2022-09-15] MEDS: Escitalopram Oxalate 20 mg Tablet PO SCH (08:48)
[2022-09-15] MEDS: HYDROcodone/Acetaminophen 10/325 mg Tablet PO SCH ×3 (08:48→21:56)
[2022-09-15] MEDS: Baclofen 10 MG TAB PO SCH ×3 (08:48→21:55)
[2022-09-15] MEDS: Nystatin Powder 15 GM BOT TOP SCH ×2 (09:14→21:57)
[2022-09-15] MEDS: Moisturizing Cream (Eucerin) 113 GM JAR TOP SCH ×2 (09:14→21:57)
[2022-09-15] MEDS: Ondansetron PF 4 MG/2 ML Vial IVP PRN (10:08)
[2022-09-15] MEDS: Thiamine HCl 200 MG/2 ML VIAL SLOW IVP SCH (15:21)
[2022-09-15] MEDS: Scopolamine 1.5 mg/72 hour Patch TD SCH (15:22)
[2022-09-15] MEDS: cefTRIAXone\\ROCEPHIN 2 GM in Sodium Chloride 0.9% 100 ML IVPB SCH (21:55)
[2022-09-16 03:48] LABS: Hemoglobin 9.5 g/dL (12.0-15.5); Mean Corpuscular HGB CONC 28.8 g/dL (32.0-36.0); Mean Corpuscular Hemoglobin 24.6 pg (27.0-33.0); Mean Corpuscular Volume 85.5 fl (81.6-98.3); Mean Platelet Volume 8.8 fl (7.4-10.4); Platelet Count 512 10x3/uL (150-450); RBC Distribution Width 26.7 % (11.5-14.5); Red Blood Cell (RBC) Count 3.86 10x6/uL (3.90-5.03); White Blood Cell (WBC) Count 14.3 10x3/uL (3.5-10.5)
[2022-09-16 03:49] LABS: MDiff Complete? YES
[2022-09-16 03:56] LABS: Anion Gap 12 mmol/L (10-20); BUN (Urea Nitrogen) 5 mg/dL (7.0-18.7); Calc. Creatinine Clearance 265 mL/min (70-130); Calcium 7.9 mg/dL (7.8-10.44); Carbon Dioxide 28 mmol/L (22-29); Chloride 104 mmol/L (98-107); Estimated GFR 121; Glucose 90 mg/dL (70-105); Potassium 3.5 mmol/L (3.5-5.1); Sodium 140 mmol/L (136-145)
[2022-09-16 05:03] LABS: Eosinophils 4 % (0-10); Lymphocytes 16 % (21-51); Monocytes 13 % (0-10); Neutrophil 67 % (42-75)
[2022-09-16 05:09] LABS: Anisocytosis SLIGHT = 6-15 cells (100X) (0-5/hpf); Elliptocytes SLIGHT = 2-5 cells (100X) (0-1/hpf); Hypochromia SLIGHT = 6-15 cells (100X) (0-5/hpf); Large Platelets SLIGHT (None Seen); Macrocytosis SLIGHT = 6-15 cells (100X) (0-5/hpf); Microcytosis SLIGHT = 6-15 cells (100X) (0-5/hpf); Platelet Morphology Comment Appears Adequate
[2022-09-16] MEDS ORDERED: Potassium Chloride 20 MEQ TAB PO SCH (08:00)
[2022-09-16] MEDS: Aspirin 81 mg Enteric Coated Tablet PO SCH ×2 (10:27→10:46)
[2022-09-16] MEDS: Baclofen 10 MG TAB PO SCH ×4 (10:27→21:31)
[2022-09-16] MEDS: HYDROcodone/Acetaminophen 10/325 mg Tablet PO SCH ×5 (10:28→21:08)
[2022-09-16] MEDS: Metoprolol Tartrate 25 MG TAB PO SCH ×3 (10:29→21:09)
[2022-09-16] MEDS: Pregabalin 25 MG CAP PO SCH ×3 (10:30→21:09)
[2022-09-16] MEDS: Escitalopram Oxalate 20 mg Tablet PO SCH (10:46)
[2022-09-16] MEDS: Moisturizing Cream (Eucerin) 113 GM JAR TOP SCH ×2 (10:47→21:31)
[2022-09-16] MEDS: Nystatin Powder 15 GM BOT TOP SCH ×2 (10:47→21:08)
[2022-09-16] MEDS: Nystatin 500,000 UNITS/5 ML UDCUP SSP SCH ×4 (10:47→21:31)
[2022-09-16] MEDS: Ipratropium Bromide 2.5 ml Neb NEB SCH ×3 (11:25→22:45)
[2022-09-16] MEDS ORDERED: Ipratropium Bromide 2.5 ml Neb ONE (11:36)
[2022-09-16] MEDS: Promethazine HCl 12.5 MG in Sodium Chloride 0.9% 50 ML IVPB PRN (13:00)
[2022-09-16] MEDS: metroNIDAZOLE 500 MG in Premix Bag 1 BAG IVPB SCH ×2 (14:20→21:32)
[2022-09-16] MEDS: Ketorolac Tromethamine 30 MG/ML VIAL IVP PRN (15:28)
[2022-09-16] MEDS: Thiamine HCl 200 MG/2 ML VIAL SLOW IVP SCH (15:29)
[2022-09-16] MEDS: Cefepime 1 GM in Sodium Chloride 0.9% 100 ML IVPB SCH ×2 (15:40)
[2022-09-16] MEDS: Ondansetron PF 4 MG/2 ML Vial IVP PRN (16:25)
[2022-09-17] MEDS: Cefepime 1 GM in Sodium Chloride 0.9% 100 ML IVPB SCH ×2 (02:28→13:22)
[2022-09-17] MEDS: Ipratropium Bromide 2.5 ml Neb NEB SCH ×6 (03:30→23:28)
[2022-09-17 04:03] LABS: Anion Gap 12 mmol/L (10-20); BUN (Urea Nitrogen) 6 mg/dL (7.0-18.7); Calc. Creatinine Clearance 265 mL/min (70-130); Calcium 8.2 mg/dL (7.8-10.44); Carbon Dioxide 28 mmol/L (22-29); Chloride 104 mmol/L (98-107); Estimated GFR 121; Glucose 78 mg/dL (70-105); Potassium 3.4 mmol/L (3.5-5.1); Sodium 141 mmol/L (136-145)
[2022-09-17 04:38] LABS: #Basophils 0.1 10x3/uL (0.0-0.2); #Eosinphils 0.1 10x3/uL (0.0-0.5); #Monocytes 1.7 10x3/uL (0.0-1.1); #Neutrophils 10.4 10x3/uL (1.5-8.4); %Basophils 0.3 % (0.0-2.0); %Eosinophils 0.8 % (0.0-6.0); %Lymphocytes 20.4 % (18.0-47.0); %Monocytes 10.8 % (0.0-10.0); %Neutrophils 67.2 % (40.0-75.0); Hemoglobin 9.1 g/dL (12.0-15.5); Mean Corpuscular Hemoglobin 24.7 pg (27.0-33.0); Mean Corpuscular Volume 85.1 fl (81.6-98.3); Mean Platelet Volume 9.2 fl (7.4-10.4); Platelet Count 496 10x3/uL (150-450); RBC Distribution Width 26.3 % (11.5-14.5); Red Blood Cell (RBC) Count 3.69 10x6/uL (3.90-5.03); White Blood Cell (WBC) Count 15.5 10x3/uL (3.5-10.5)
[2022-09-17] MEDS: metroNIDAZOLE 500 MG in Premix Bag 1 BAG IVPB SCH ×3 (06:14→23:31)
[2022-09-17] MEDS ORDERED: Potassium Chloride 20 MEQ TAB PO SCH (08:00)
[2022-09-17] MEDS: Aspirin 81 mg Enteric Coated Tablet PO SCH (08:57)
[2022-09-17] MEDS: Escitalopram Oxalate 20 mg Tablet PO SCH (08:57)
[2022-09-17] MEDS: Pregabalin 25 MG CAP PO SCH ×2 (08:57→20:33)
[2022-09-17] MEDS: Metoprolol Tartrate 25 MG TAB PO SCH ×2 (08:57→20:32)
[2022-09-17] MEDS: Nystatin 500,000 UNITS/5 ML UDCUP SSP SCH ×4 (08:57→20:33)
[2022-09-17] MEDS: Baclofen 10 MG TAB PO SCH ×3 (08:58→20:32)
[2022-09-17] MEDS: HYDROcodone/Acetaminophen 10/325 mg Tablet PO SCH ×3 (08:58→20:32)
[2022-09-17] MEDS: Pantoprazole 40 MG VIAL IVP SCH (09:00)
[2022-09-17] MEDS: Moisturizing Cream (Eucerin) 113 GM JAR TOP SCH ×2 (09:00→20:33)
[2022-09-17] MEDS: Potassium Chloride 20 MEQ in Premix Bag 1 BAG IVPB SCH ×2 (10:10→11:58)
[2022-09-17] MEDS: Nystatin Powder 15 GM BOT TOP SCH ×2 (10:17→20:32)
[2022-09-17] MEDS: Thiamine HCl 200 MG/2 ML VIAL SLOW IVP SCH (14:54)
[2022-09-18 02:52] LABS: Anion Gap 12 mmol/L (10-20); BUN (Urea Nitrogen) 6 mg/dL (7.0-18.7); Calc. Creatinine Clearance 265 mL/min (70-130); Calcium 7.8 mg/dL (7.8-10.44); Carbon Dioxide 26 mmol/L (22-29); Chloride 106 mmol/L (98-107); Estimated GFR 121; Glucose 76 mg/dL (70-105); Potassium 4.2 mmol/L (3.5-5.1); Sodium 140 mmol/L (136-145)
[2022-09-18 03:11] LABS: #Basophils 0.1 10x3/uL (0.0-0.2); #Eosinphils 0.2 10x3/uL (0.0-0.5); #Monocytes 1.3 10x3/uL (0.0-1.1); #Neutrophils 6.2 10x3/uL (1.5-8.4); %Basophils 0.6 % (0.0-2.0); %Eosinophils 2.2 % (0.0-6.0); %Lymphocytes 27.6 % (18.0-47.0); %Monocytes 12.1 % (0.0-10.0); Hemoglobin 8.7 g/dL (12.0-15.5); Mean Corpuscular HGB CONC 28.6 g/dL (32.0-36.0); Mean Corpuscular Volume 87.4 fl (81.6-98.3); Mean Platelet Volume 8.8 fl (7.4-10.4); Platelet Count 424 10x3/uL (150-450); RBC Distribution Width 25.9 % (11.5-14.5); Red Blood Cell (RBC) Count 3.48 10x6/uL (3.90-5.03); White Blood Cell (WBC) Count 10.9 10x3/uL (3.5-10.5)
[2022-09-18] MEDS: Cefepime 1 GM in Sodium Chloride 0.9% 100 ML IVPB SCH ×2 (03:14→13:02)
[2022-09-18] MEDS: Ipratropium Bromide 2.5 ml Neb NEB SCH ×6 (03:25→22:10)
[2022-09-18] MEDS: metroNIDAZOLE 500 MG in Premix Bag 1 BAG IVPB SCH ×3 (05:57→22:23)
[2022-09-18 06:06] VITALS: BMI 35.1
[2022-09-18] MEDS: Moisturizing Cream (Eucerin) 113 GM JAR TOP SCH ×2 (08:17→22:24)
[2022-09-18] MEDS: Baclofen 10 MG TAB PO SCH ×3 (08:18→22:21)
[2022-09-18] MEDS: Nystatin 500,000 UNITS/5 ML UDCUP SSP SCH ×4 (08:18→22:23)
[2022-09-18] MEDS: Pantoprazole 40 MG VIAL IVP SCH (08:19)
[2022-09-18] MEDS: Pregabalin 25 MG CAP PO SCH ×2 (08:19→22:20)
[2022-09-18] MEDS: Aspirin 81 mg Enteric Coated Tablet PO SCH (08:20)
[2022-09-18] MEDS: Metoprolol Tartrate 25 MG TAB PO SCH ×2 (08:20→22:22)
[2022-09-18] MEDS: Escitalopram Oxalate 20 mg Tablet PO SCH (08:20)
[2022-09-18] MEDS: HYDROcodone/Acetaminophen 10/325 mg Tablet PO SCH ×3 (08:20→22:22)
[2022-09-18] MEDS: Nystatin Powder 15 GM BOT TOP SCH ×2 (08:26→22:24)
[2022-09-18] MEDS ORDERED: Acetaminophen 325 MG TAB PO PRN (12:51)
[2022-09-18] MEDS: Scopolamine 1.5 mg/72 hour Patch TD SCH (14:04)
[2022-09-18] MEDS: Thiamine HCl 200 MG/2 ML VIAL SLOW IVP SCH (14:08)
[2022-09-18] MEDS ORDERED: Morphine 2 MG/ML VIAL SLOW IVP PRN (16:08)
[2022-09-18] MEDS ORDERED: Morphine 4 MG/ML VIAL SLOW IVP PRN (16:08)
[2022-09-18] MEDS ORDERED: Lorazepam 2 MG/ML VIAL SLOW IVP PRN (16:09)
[2022-09-19] MEDS: Cefepime 1 GM in Sodium Chloride 0.9% 100 ML IVPB SCH (01:38)
[2022-09-19] MEDS: Ipratropium Bromide 2.5 ml Neb NEB SCH ×3 (02:28→11:24)
[2022-09-19 03:21] LABS: #Basophils 0.1 10x3/uL (0.0-0.2); #Eosinphils 0.3 10x3/uL (0.0-0.5); #Monocytes 1.2 10x3/uL (0.0-1.1); #Neutrophils 6.9 10x3/uL (1.5-8.4); %Basophils 0.5 % (0.0-2.0); %Eosinophils 2.4 % (0.0-6.0); %Lymphocytes 24.9 % (18.0-47.0); %Monocytes 10.9 % (0.0-10.0); %Neutrophils 60.9 % (40.0-75.0); Hemoglobin 8.8 g/dL (12.0-15.5); Mean Corpuscular HGB CONC 28.4 g/dL (32.0-36.0); Mean Corpuscular Hemoglobin 24.6 pg (27.0-33.0); Mean Corpuscular Volume 86.8 fl (81.6-98.3); Mean Platelet Volume 8.9 fl (7.4-10.4); Platelet Count 439 10x3/uL (150-450); RBC Distribution Width 25.2 % (11.5-14.5); Red Blood Cell (RBC) Count 3.57 10x6/uL (3.90-5.03); White Blood Cell (WBC) Count 11.3 10x3/uL (3.5-10.5)
[2022-09-19 03:32] LABS: Anion Gap 11 mmol/L (10-20); BUN (Urea Nitrogen) 8 mg/dL (7.0-18.7); Calc. Creatinine Clearance 262 mL/min (70-130); Calcium 7.8 mg/dL (7.8-10.44); Carbon Dioxide 28 mmol/L (22-29); Chloride 106 mmol/L (98-107); Estimated GFR 121; Glucose 86 mg/dL (70-105); Potassium 3.6 mmol/L (3.5-5.1); Sodium 141 mmol/L (136-145)
[2022-09-19 03:49] LABS: Anisocytosis SLIGHT = 6-15 cells (100X) (0-5/hpf); Platelet Morphology Comment Appears Increased
[2022-09-19 03:50] LABS: Hypochromia SLIGHT = 6-15 cells (100X) (0-5/hpf); Macrocytosis SLIGHT = 6-15 cells (100X) (0-5/hpf); Microcytosis SLIGHT = 6-15 cells (100X) (0-5/hpf)
[2022-09-19] MEDS: metroNIDAZOLE 500 MG in Premix Bag 1 BAG IVPB SCH (05:21)
[2022-09-19] MEDS: Moisturizing Cream (Eucerin) 113 GM JAR TOP SCH (08:44)
[2022-09-19] MEDS: HYDROcodone/Acetaminophen 10/325 mg Tablet PO SCH (08:45)
[2022-09-19] MEDS: Nystatin 500,000 UNITS/5 ML UDCUP SSP SCH (08:45)
[2022-09-19] MEDS: Baclofen 10 MG TAB PO SCH (08:46)
[2022-09-19] MEDS: Aspirin 81 mg Enteric Coated Tablet PO SCH (08:46)
[2022-09-19] MEDS: Metoprolol Tartrate 25 MG TAB PO SCH (08:46)
[2022-09-19] MEDS: Pantoprazole 40 MG VIAL IVP SCH (08:46)
[2022-09-19] MEDS: Escitalopram Oxalate 20 mg Tablet PO SCH (08:46)
[2022-09-19] MEDS: Pregabalin 25 MG CAP PO SCH (08:46)
[2022-09-19] MEDS: Nystatin Powder 15 GM BOT TOP SCH (08:54)
[2022-09-19 10:00] VITALS: BP 133/81; TEMP 98.8
[2022-09-19] MEDS: Ketorolac Tromethamine 30 MG/ML VIAL IVP PRN (10:49)
== END 2022-09-19 11:50 | disposition short-term general hospital (02) | DRG 853 ==
LOC: CSHERS 12:37 → CSHERHOLD 18:21 → CSHTELE 09-06 12:03 → CSHIMCU 09-08 13:22 → CSHTELE 09-11 10:42 → CSHICU 09-16 12:03 → CSHTELE 09-19 09:43
PROVIDERS: ADMIT Family Medicine; ATTEND Internal Medicine
PROC: 3E03329 Introduction of Other Anti-infective into Peripheral Vein, Percutaneous Approach (ICD-10-PCS; 2022-09-05)
PROC: 4A10X4Z Monitoring of Central Nervous Electrical Activity, External Approach (ICD-10-PCS; 2022-09-06)
PROC: 0JB90ZZ Excision of Buttock Subcutaneous Tissue and Fascia, Open Approach (ICD-10-PCS; principal; 2022-09-08)
PROC: 0D9670Z Drainage of Stomach with Drainage Device, Via Natural or Artificial Opening (ICD-10-PCS; 2022-09-09)
PROC: 5A0945A Assistance with Respiratory Ventilation, 24-96 Consecutive Hours, High Flow/Velocity Cannula (ICD-10-PCS; 2022-09-16)
DX: A41.9 Sepsis, unspecified organism (principal); G82.50 Quadriplegia, unspecified; G93.41 Metabolic encephalopathy; L89.314 Pressure ulcer of right buttock, stage 4; J69.0 Pneumonitis due to inhalation of food and vomit; J96.01 Acute respiratory failure with hypoxia; T83.511A Infection and inflammatory reaction due to indwelling urethral catheter, initial encounter; L03.116 Cellulitis of left lower limb; I96 Gangrene, not elsewhere classified; E87.20 Acidosis, unspecified; M86.8X8 Other osteomyelitis, other site; F32.A Depression, unspecified; G89.29 Other chronic pain; I10 Essential (primary) hypertension; E87.6 Hypokalemia; M62.838 Other muscle spasm; E55.9 Vitamin D deficiency, unspecified; D64.9 Anemia, unspecified; R13.10 Dysphagia, unspecified; R19.7 Diarrhea, unspecified; Y83.8 Other surgical procedures as the cause of abnormal reaction of the patient, or of later complication, without mention of misadventure at the time of the procedure; Z98.890 Other specified postprocedural states; Z88.1 Allergy status to other antibiotic agents; Z88.8 Allergy status to other drugs, medicaments and biological substances
CPT/HCPCS: 36415; 36416; 70450; 70551; 71045; 74018; 74176; 80048; 80053; 80076; 80143; 80202; 80306; 80307; 81003; 81015; 82533; 82550; 83605; 83735; 84100; 84145; 84439; 84443; 84481; 85025; 87040; 87077; 87086; 87186; 93005; 93010; 94640; 94760; 94762; 95816; 95819; 95957; 96361; 96365; 96375; 97139; C9113; J0692; J0696; J1650; J1885; J2060; J2270; J2405; J2550; J2765; J3370; J3411; J3475; J3480; J3490; J7050; J7070; Q0169